=== PATIENT | male | born 1985 | race Caucasian/White ===

== ENCOUNTER 2017-07-30 11:31 | Inpatient (IN) | payer OTHER ==
[~2017-07-30] VITALS: Ht 167.6 cm; Wt 78.0 kg
[~2017-07-30 11:31] MED LIST: ALBU-74 IH; DORZ10SO3 RIGHT EYE; FLUT1DSK2 IH; MONT10TA35 PO; TIOT18CA2 PO; [UNRECOGNIZED DRUG - CODE] OP
[2017-07-30 11:39] VITALS: BP 156/93
[2017-07-30] MEDS ORDERED: methylPREDNISolone SS 125 MG/2 ML VIAL IVP ONE (11:50)
[2017-07-30] MEDS ORDERED: ALBUTEROL 0.083% 2.5 MG/3 ML NEBU INH ONE ×2 (11:50→13:30)
[2017-07-30] MEDS ORDERED: NACL 0.9% 1,000 ML IV ONE (11:50)
[2017-07-30] MEDS ORDERED: MAGNESIUM SULFATE 50% 1,000 MG in NACL 0.9% 50 ML IV ONE (11:50)
[2017-07-30] MEDS ORDERED: IPRATROPIUM 0.02% 0.5 MG/2.5 ML NEBU INH ONE (11:50)
--- NOTE | 2017-07-30 12:20 | NUR ---
BREATHING TREATMENT COMPLETED
[2017-07-30] MEDS ORDERED: MAGNESIUM SULFATE 50% 1000 MG/2 ML VIAL IV ONE (12:23)
--- NOTE | 2017-07-30 13:35 | NUR ---
PT SPO2 DROPPED TO 89% RA----MD NOTIFIED AND PLACED NC 2L BACK ON
[2017-07-30] MEDS ORDERED: OSELTAMIVIR PHOSPHATE 75 MG CAP PO ONE (13:55)
--- NOTE | 2017-07-30 14:00 | NUR ---
HOLDING CONVERSATION WITH PT---DENIES PAIN AT THIS TIME ADMITS BREATHING REMAINS LABORED BUT MANAGEABLE AT THIS TIME 2L NC IN PLACE----4-5 WORD SENTENCES
[2017-07-30] MEDS ORDERED: HYDROcodone/APAP 7.5/325 MG 1 TAB PO PRN (15:50)
[2017-07-30] MEDS ORDERED: DOCUSATE SODIUM 100 MG GELCAP PO PRN (15:50)
[2017-07-30] MEDS ORDERED: ACETAMINOPHEN 325 MG TAB PO PRN (15:50)
[2017-07-30] MEDS ORDERED: ONDANSETRON 4 MG/2 ML VIAL IM/IVP PRN (15:50)
[2017-07-30] MEDS ORDERED: ALBUTEROL SULFATE/IPRATROPIU 3 ML SOL IH PRN (15:55)
--- NOTE | 2017-07-30 16:16 | NUR ---
PATIENT TRANSFERED TO ROOM VIA GURNEY IN STABLE CONDITION WITH ALL BELONGINGS REPORT TO LIN IZAGUIRRE AT BEDSIDE.
[2017-07-30 16:55] LABS: BASOPHILS # (AUTO) 0.1 K/uL (0.00-0.22); EOSINOPHILS % (AUTO) 0.2 % (0.0-4.0); HEMATOCRIT 46.2 % (36-52); HEMOGLOBIN 15.2 g/dL (12.0-18.0); LYMPHOCYTES # (AUTO) 0.5 K/uL (2.0-11.5); LYMPHOCYTES % (AUTO) 5.3 % (20.5-51.1); MEAN CORPUSCULAR HEMOGLOBIN 27 pg (27-31); MEAN CORPUSCULAR HGB CONC 33 g/dL (33-37); MEAN CORPUSCULAR VOLUME 82 fL (80-94); MONOCYTES # (AUTO) 0.1 K/uL (0.8-1.0); MONOCYTES % (AUTO) 0.9 % (1.7-9.3); NEUTROPHILS # (AUTO) 8.3 K/uL (1.8-7.7); NEUTROPHILS % (AUTO) 92.6 % (42.2-75.2); PLATELET COUNT (AUTO) 218 K/uL (140-450); RED BLOOD CELL COUNT(AUTO) 5.65 MIL/uL (4.20-6.10); RED CELL DISTRIBUTION WIDTH 13.2 % (11.6-13.7)
--- NOTE | 2017-07-30 17:00 | NUR ---
Admitted from ED, with chief complaint of SOB X2 DAYS. PT AAOX4. NO SOB NOTED. NO C/O PAIN AT THIS TIME. IV TO LT FOREARM PATENT AND INTACT. CHEST, DIMINISHED AIR ENTRY TO THE BASES, EXPIRATORY WHEEZING HEARD BILATERALLY. PT IS A 31 y/o ,Male, Cooperative,oriented to call light, bed, phone,television, bathroom, smoking policy, visiting hours, procedures, ID bracelet on. Belongings list checked. INSTRUCTED TO CALL FOR ASSISTANCE, CALL LIGHT WITHIN REACH, PT VERBALIZED UNDERSTANDING.
[2017-07-30] MEDS: NACL 0.9% 1,000 ML IV SCH (17:16)
[2017-07-30] MEDS ORDERED: INFLUENZA VIRUS VACCINE QUAD 0.5 ML SYR IMVAC SCH (17:35)
[2017-07-30] MEDS ORDERED: PNEUMOCOCCAL VACCINE 23 MCG/0.5 ML VIAL IMVAC SCH (17:35)
[2017-07-30 17:38] LABS: ALBUMIN 3.8 g/dL (3.4-5.0); ANION GAP 15.9 (8-16); FREE T4 (FREE THYROXINE) 1.06 ng/dL (0.76-1.46); MAGNESIUM 2.3 mg/dL (1.8-2.4); PHOSPHORUS 1.8 mg/dL (2.5-4.9); POTASSIUM 3.9 mmol/L (3.5-5.1); THYROID STIMULATING HORMONE 0.34 uIU/mL (0.34-3.74); TOTAL BILIRUBIN 0.6 mg/dL (0.0-1.0)
[2017-07-30] MEDS ORDERED: AZITHROMYCIN 250 MG TAB PO SCH (18:00)
[2017-07-30] MEDS ORDERED: TIMOLOL PT (18:05)
--- NOTE | 2017-07-30 18:15 | NUR ---
[facility] NARES SWABS AND URINE SPECIMEN COLLECTED AND SENT TO LAB.
[2017-07-30] MEDS: ALBUTEROL SULFATE/IPRATROPIU 3 ML SOL IH SCH (18:35)
--- NOTE | 2017-07-30 19:05 | NUR ---
PT RESTING. NO SOB NOTED. NO COMPLAINTS MADE. WILL ENDORSE TO NEXT SHIFT NURSE FOR CONTINUITY OF CARE.
--- NOTE | 2017-07-30 19:27 | NUR ---
RECEIVED REPORT FROM DAY SHIFT RN, PATIENT RESTING IN BED, AWAKE, ALERT, ORIENTED X4, NO S/S OF DISTRESS NOTED, RESPIRATION EVEN AND UNLABORED, ON O2 3L. IV PATENT AND INTACT, INFUSING NS AT 60ML/HR. PLAN OF CARE DISCUSSED, PATIENT VERBALIZED UNDERSTANDING, CALL LIGHT WITHIN REACH, SAFETY MEASURE ENSURED, WILL CONTINUE TO MONITOR.
[2017-07-30 19:58] VITALS: BP 143/81
[2017-07-30 20:05] LABS: APPEARANCE,URINE CLEAR (CLEAR); BILIRUBIN,URINE NEGATIVE (NEGATIVE); BLOOD, URINE NEGATIVE (NEGATIVE); LEUKOCYTE ESTERASE ,URINE NEGATIVE (NEGATIVE); NITRITE, URINE NEGATIVE (NEGATIVE); UGLUCOSE TRACE (NEGATIVE)
[2017-07-30 20:12] LABS: COLOR,URINE STRAW (YELLOW)
--- NOTE | 2017-07-30 21:06 | NUR ---
MADE DR. MONAHAN AWARE THAT PATIENT HR 136. NO ORDER RECEIVED AT THIS TIME.
--- NOTE | 2017-07-30 22:30 | NUR ---
NO CHANGE IN CONDITION, PATIENT SITTING IN THE BED, NO S/S OF DISTRESS NOTED, RESPIRATION EVEN AND UNLABORED, CALL LIGHT WITHIN REACH, SAFETY MEASURE ENSURED, WILL CONTINUE TO MONITOR.
[2017-07-31] VITALS: BP 122/74
[2017-07-31] MEDS: ALBUTEROL SULFATE/IPRATROPIU 3 ML SOL IH SCH ×4 (00:03→19:47)
[2017-07-31 00:18] LABS: PROTHROMBIN TIME 9.8 secs (10.8-13.4)
--- NOTE | 2017-07-31 00:46 | NUR ---
PATIENT STILL AWAKE, VITAL SIGNS STABLE, NO S/S OF DISTRESS NOTED, RESPIRATION EVEN AND UNLABORED, ON O2 NC 3L. CALL LIGHT WITHIN REACH, SAFETY MEASURE ENSURED, WILL CONTINUE TO MONITOR.
--- NOTE | 2017-07-31 02:59 | NUR ---
IV OUT, NO ACTIVE BLEEDING NOTED, STARTED NEW IV 22G ON LT HAND, PATIENT TOLERATED WELL. WILL CONTINUE TO MONITOR.
--- NOTE | 2017-07-31 04:24 | NUR ---
PATIENT IS WATCHING TV, NO S/S OF DISTRESS NOTED, RESPIRATION EVEN AND UNLABORED, CALL LIGHT WITHIN REACH, SAFETY MEASURE ENSURED, WILL CONTINUE TO MONITOR.
--- NOTE | 2017-07-31 06:16 | NUR ---
NO CHANGE IN CONDITION, PATIENT IS WATCHING TV, NO S/S OF DISTRESS NOTED, RESPIRATION EVEN AND UNLABORED, CALL LIGHT WITHIN REACH, SAFETY MEASURE ENSURED, WILL CONTINUE TO MONITOR.
[2017-07-31 06:37] LABS: BASOPHILS # (AUTO) 0.1 K/uL (0.00-0.22); BASOPHILS % (AUTO) 0.9 % (0.0-2.0); EOSINOPHILS % (AUTO) 0.2 % (0.0-4.0); HEMATOCRIT 42.7 % (36-52); LYMPHOCYTES # (AUTO) 1.1 K/uL (2.0-11.5); LYMPHOCYTES % (AUTO) 11.5 % (20.5-51.1); MEAN CORPUSCULAR HEMOGLOBIN 27 pg (27-31); MEAN CORPUSCULAR HGB CONC 33 g/dL (33-37); MEAN CORPUSCULAR VOLUME 82 fL (80-94); MONOCYTES # (AUTO) 0.6 K/uL (0.8-1.0); MONOCYTES % (AUTO) 5.7 % (1.7-9.3); NEUTROPHILS # (AUTO) 7.9 K/uL (1.8-7.7); NEUTROPHILS % (AUTO) 81.7 % (42.2-75.2); PLATELET COUNT (AUTO) 209 K/uL (140-450); RED BLOOD CELL COUNT(AUTO) 5.24 MIL/uL (4.20-6.10); RED CELL DISTRIBUTION WIDTH 12.7 % (11.6-13.7)
[2017-07-31 06:56] LABS: ANION GAP 13.6 (8-16); CARBON DIOXIDE 28.6 mmol/L (21-32); CREATININE 0.8 mg/dL (0.7-1.3); POTASSIUM 4.2 mmol/L (3.5-5.1)
[2017-07-31 07:06] LABS: WHITE BLOOD COUNT (AUTO) 9.7 K/uL (4.8-10.8)
[2017-07-31 07:07] LABS: PHOSPHORUS 3.4 mg/dL (2.5-4.9)
--- NOTE | 2017-07-31 07:12 | NUR ---
ENDORSED PLAN OF CARE TO DAY SHIFT RN, PATIENT RESTING IN BED, IN STABLE CONDITION, NO S/S OF DISTRESS.
--- NOTE | 2017-07-31 07:30 | NUR ---
RECEIVED PT AAOX4. NO SOB NOTED. NO C/O PAIN AT THIS TIME. IV TO LT HAND PATENT AND INTACT. CHEST, DIMINISHED AIR ENTRY TO THE BASES, EXPIRATORY WHEEZING HEARD BILATERALLY. PT ON O2 VIA NC 2L AT WITH SATS OF 97%, PT ON 95% ON ROOM AIR WHILE ON BED. ABDOMEN SOFT, BOWEL SOUNDS PRESENT. NO EDEMA NOTED. INSTRUCTED PT TO CALL FOR ASSISTANCE, CALL LIGHT WITHIN REACH, PT VERBALIZED UNDERSTANDING.
[2017-07-31 08:00] VITALS: BP 125/75
[2017-07-31] MEDS: NACL 0.9% 1,000 ML IV SCH (08:57)
[2017-07-31] MEDS: AZITHROMYCIN 250 MG TAB PO SCH (08:58)
[2017-07-31] MEDS: MONTELUKAST SODIUM 10 MG TAB PO SCH (08:58)
[2017-07-31] MEDS: FAMOTIDINE 20 MG TAB PO SCH (08:58)
[2017-07-31] MEDS: methylPREDNISolone SS 40 MG/ML VIAL IVP SCH ×2 (08:59→20:59)
[2017-07-31] MEDS: LORATADINE 10 MG TAB PO SCH (08:59)
[2017-07-31] MEDS ORDERED: methylPREDNISolone SS 40 MG in WATER STERILE 1 ML IV SCH (09:00)
--- NOTE | 2017-07-31 09:03 | NUR ---
FAXED INITIAL REVIEW TO [facility] [phone] PHONE [phone] [id number] ERIK
--- NOTE | 2017-07-31 09:09 | NUR ---
PT CAME BACK FROM THE BATHROOM ON ROOMAIR, O2 SATS WERE BETWEEN 87%-88%, PT C/O SOB, HELPED SETTLED PT BACK IN BED ON SITTING POSITION, APPLIED O2 AT 2LPM, O2 SATS AT 93%. REEDUCATED PT WITH THE USE OF INCENTIVE SPIROMETER, PT REACHED UP TO 1000 MLS. INSTRUCTED PT TO DO IT 10X ON WAKING HOURS, PT VERBALIZED UNDERSTANDING. WILL CONTINUE TO MONITOR.
--- NOTE | 2017-07-31 09:48 | NUR ---
PATIENT HAS BEEN SCREENED AND CATEGORIZED LOW NUTRITION RISK. PATIENT WILL BE SEEN WITHIN 7 DAYS OF ADMISSION. 08/05/[address]
[2017-07-31 11:26] LABS: BARBITURATE, URINE NEG. ng/ml (NEG <=200); BENZODIAZEPINE, URINE NEG. ng/mL (NEG <=200); CANNABINOID, URINE NEG. ng/mL (NEG <=50); COCAINE, URINE NEG. ng/mL (NEG <=300); OPIATE, URINE NEG. ng/mL (NEG <=2000); PHENCYCLIDINE SCREEN,URINE NEG. ng/mL (NEG <=25)
--- NOTE | 2017-07-31 13:00 | NUR ---
SPOKE TO BOBO, PT'S O2 SATS DROPPED DOWN TO 87% ON ROOM AIR WHEN PT GOES TO THE BATHROOM, PT STILL COMPLAINING OF SOB ON EXERTION. O2 APPLIED BACK TO 2LPM VIA [employer] CANNULA. WILL CONTINUE TO MONITOR PT.
--- NOTE | 2017-07-31 14:45 | NUR ---
RESPIRATORY THERAPIST AT THE BEDSIDE TO DRAW ABG ON ROOM AIR.
[2017-07-31 16:00] VITALS: BP 116/71
--- NOTE | 2017-07-31 18:50 | NUR ---
PT RESTING. NO SOB NOTED. NO SIGNS OF PAIN AT THIS TIME. WILL ENDORSE TO NEXT SHIFT NURSE FOR CONTINUITY OF CARE.
--- NOTE | 2017-07-31 19:21 | NUR ---
RECEIVED REPORT FROM DAY SHIFT RN, PATIENT RESTING IN BED, AWAKE ALERT ORIENTED X4, NO S/S OF DISTRESS NOTED, RESPIRATION EVEN AND UNLABORED, ON O2 NC 2L. IV PATENT AND INTACT, INFUSING NS AT 60ML/HR. PLAN OF CARE DISCUSSED, PATIENT VERBALIZED UNDERSTANDING, CALL LIGHT WITHIN REACH, SAFETY MEASURE ENSURED, WILL CONTINUE TO MONITOR.
--- NOTE | 2017-07-31 21:08 | NUR ---
DUE MEDICATION GIVEN, PATIENT TOLERATED WELL. NO S/S OF DISTRESS NOTED, RESPIRATION EVEN AND UNLABORED, PATIENT IS ON ROOM AIR NOW, O2SAT 91%, STATED," I FEEL OKAY." CALL LIGHT WITHIN REACH, SAFETY MEASURE ENSURED, WILL CONTINUE TO MONITOR.
[2017-08-01] VITALS: BP 123/73
--- NOTE | 2017-08-01 00:10 | NUR ---
NO CHANGE IN CONDITION, PATIENT RESTING IN BED, RESPIRATION EVEN AND UNLABORED, NO S/S OF DISTRESS NOTED, CALL LIGHT WITHIN REACH, SAFETY MEASURE ENSURED, WILL CONTINUE TO MONITOR.
[2017-08-01] MEDS: ALBUTEROL SULFATE/IPRATROPIU 3 ML SOL IH SCH ×4 (01:00→19:32)
[2017-08-01] MEDS: NACL 0.9% 1,000 ML IV SCH ×2 (01:07→19:30)
--- NOTE | 2017-08-01 02:16 | NUR ---
PATIENT IS SLEEPING, NO S/S OF DISTRESS NOTED, RESPIRATION EVEN AND UNLABORED, CALL LIGHT WITHIN REACH, SAFETY MEASURE ENSURED, WILL CONTINUE TO MONITOR.
--- NOTE | 2017-08-01 04:57 | NUR ---
NO CHANGE IN CONDITION, PATIENT IS SLEEPING, NO S/S OF DISTRESS NOTED, RESPIRATION EVEN AND UNLABORED, CALL LIGHT WITHIN REACH, SAFETY MEASURE ENSURED, WILL CONTINUE TO MONITOR.
--- NOTE | 2017-08-01 05:15 | NUR ---
PATIENT AWAKE, RESPIRATION EVEN AND UNLABORED, O2SAT 92% ON ROOM AIR, BUT PATIENT WANTS TO BE PUT BACK ON O2 WHEN HE IS SLEEPING, PUT NC O2 2L BACK ON PATIENT, CALL LIGHT WITHIN REACH ,SAFETY MEASURE ENSURED, WILL CONTINUE TO MONITOR.
--- NOTE | 2017-08-01 06:58 | NUR ---
PATIENT IS SLEEPING, NO S/S OF DISTRESS NOTED, RESPIRATION EVEN AND UNLABORED, CALL LIGHT WITHIN REACH, SAFETY MEASURE ENSURED, WILL CONTINUE TO MONITOR.
[2017-08-01 07:14] LABS: HEMATOCRIT 46.7 % (36-52); HEMOGLOBIN 15.4 g/dL (12.0-18.0); MEAN CORPUSCULAR HEMOGLOBIN 27 pg (27-31); MEAN CORPUSCULAR HGB CONC 33 g/dL (33-37); MEAN CORPUSCULAR VOLUME 82 fL (80-94); PLATELET COUNT (AUTO) 249 K/uL (140-450); RED BLOOD CELL COUNT(AUTO) 5.67 MIL/uL (4.20-6.10); RED CELL DISTRIBUTION WIDTH 12.8 % (11.6-13.7); WHITE BLOOD COUNT (AUTO) 15.4 K/uL (4.8-10.8)
[2017-08-01 07:19] LABS: ANION GAP 12.9 (8-16); CARBON DIOXIDE 30.7 mmol/L (21-32); POTASSIUM 4.6 mmol/L (3.5-5.1)
[2017-08-01 07:21] LABS: MAGNESIUM 2.1 mg/dL (1.8-2.4); PHOSPHORUS 4.8 mg/dL (2.5-4.9)
--- NOTE | 2017-08-01 07:21 | NUR ---
ENDORSED PLAN OF CARE TO DAY SHIFT RN, PATIENT IS IN STABLE CONDITION, NO S/S OF DISTRESS NOTED.
--- NOTE | 2017-08-01 07:22 | NUR ---
RECEIVED PATIENT REPORT AT BEDSIDE FROM NIGHT NURSE. PATIENT IS SLEEPING AND EASILY AROUSABLE TO VOICE AND SHOWS NO S/S OF ACUTE DISTRESS ON O2 @ 2L VIA NC. NOTED IV ON THE LEFT HAND WITH IVF'S INFUSING WELL, IV IS PATENT AND INTACT. SKIN INTACT. DENIES PAIN. PATIENT WAS DISCUSSED POC FOR TODAY, HOSPITAL ENVIRONMENT, CALL LIGHT USE FOR ASSISTANCE. BED IN LOW POSITION WITH CALL LIGHT WITHIN REACH, PATIENT VERBALIZED UNDERSTANDING.
--- NOTE | 2017-08-01 07:30 | NUR ---
PER [facility] CHARGE NURSE PATIENT TAKEN OFF O2 VIA NC D/T WEENING OFF ORDERS PER DR SIDDIQI.
--- NOTE | 2017-08-01 07:47 | NUR ---
AWAKE AND ALERT SATURATION 90% ON ROOM AIR POST HHN THERAPY PLACED BACK ON SUPPLEMENTAL OXYGEN AT 2 LPM VIA NC TO KEEP SATURATION GREATER THAN 92% SIMEON/RN NOTIFIED C/O NASAL DRYNESS ADDED HUMIDIFIER
[2017-08-01 08:05] VITALS: BP 147/84
[2017-08-01 08:40] LABS: BASOPHILS % (MANUAL) 1 % (0-2); LYMPHOCYTES % (MANUAL) 6 % (20-46); MONOCYTES % (MANUAL) 5 % (5-12)
[2017-08-01] MEDS: LORATADINE 10 MG TAB PO SCH (09:41)
[2017-08-01] MEDS: MONTELUKAST SODIUM 10 MG TAB PO SCH (09:41)
[2017-08-01] MEDS: AZITHROMYCIN 250 MG TAB PO SCH (09:42)
[2017-08-01] MEDS: methylPREDNISolone SS 40 MG/ML VIAL IVP SCH ×2 (09:42→20:15)
[2017-08-01] MEDS: FAMOTIDINE 20 MG TAB PO SCH (09:42)
--- NOTE | 2017-08-01 09:45 | NUR ---
ADMINISTERED SCHEDULED MEDICATIONS, PATIENT SWALLOWED WITHOUT DIFFICULTY, PATIENT OFF O2 AND ON ROOM AIR AND O2 SAT RANGES FROM 89-92%, HR 115-127. PATIENT DENIES SOB, DYSPNEA AND PAIN.
--- NOTE | 2017-08-01 09:50 | NUR ---
ASSISTED PATIENT WITH AMB ON UNIT, FIRST LAP AROUND UNIT PATIENT'S O2 SATURATION RANGES FROM 88%-90% HR 115-132 AND DENIES SOB, DYSPNEA, AND PAIN. SECOND ATTEMPT TO WALK AROUND UNIT PATIENT O2 SAT RANGES FROM 81%-90%, STEADILY DECREASED WITH HR 142 AND DENIES SOB, DYSPNEA, AND PAIN. PATIENT WAS TAKEN BACK TO ROOM AND GIVEN O2 @ 2L VIA NC. PATIENT'S O2 SAT IS NOW 94% HR 125 AND DENIES SOB, DYSPNEA, AND PAIN. ALL NEEDS MET AT THIS TIME, TIMOTEO FINLEY WAS NOTIFIED AND WILL ASSESS PATIENT'S O2 WHILE AMB WELL.
--- NOTE | 2017-08-01 10:30 | NUR ---
TIMOTEO RT AMB PATIENT ON UNIT, PATIENT'S O2 SAT WENT DOWN TO 80% WITH HR 145, PATIENT BACK IN ROOM ON O2 @ 2L VIA NC.
--- NOTE | 2017-08-01 10:40 | NUR ---
DR PHELAN AND DR PRIETO AWARE OF PATIENT'S O2 SAT DECREASING WHILE AMB.
[2017-08-01 12:20] VITALS: BP 135/69
--- NOTE | 2017-08-01 12:30 | NUR ---
PATIENT SHOWS NO S/S OF ACUTE DISTRESS ON O2 @ 2L VIA NC. BED IS LOWERED WITH CALL LIGHT WITHIN REACH.
--- NOTE | 2017-08-01 13:35 | NUR ---
PATIENT CURRENTLY RECEIVING BREATHING TX. PATIENT O2 SAT IS 96% HR OF 125. RT AT BEDSIDE.
--- NOTE | 2017-08-01 14:25 | NUR ---
CM NOTE CONCURRENT REVIEW FAXED TO [facility] / FAX# [phone], ATTN: ERIK #[phone] [id number]
[2017-08-01 16:00] VITALS: BP 136/64
--- NOTE | 2017-08-01 16:15 | NUR ---
PATIENT SHOWS NO S/S OF ACUTE DISTRESS ON O2 @ 2L VIA NC. BED IS LOWERED WITH CALL LIGHT WITHIN REACH.
[2017-08-01] MEDS: LEVOFLOXACIN 750 MG/D5W PREMIX 150 ML IV SCH (18:07)
--- NOTE | 2017-08-01 19:00 | NUR ---
NEW IV INSERTED FOR PROCEDURE TOMORROW MORNING, 20G RIGHT AC SL, PATENT AND INTACT.
--- NOTE | 2017-08-01 19:20 | NUR ---
GAVE PATIENT REPORT AT BEDSIDE TO NIGHT NURSE. PATIENT ENDORSED IN STABLE CONDITION.
--- NOTE | 2017-08-01 19:21 | NUR ---
RECEIVED REPORT FROM DAY SHIFT NURSE. PT IS A/OX4, ON 2L O2 VIA NASAL CANNULA. PT SKIN IS INTACT. PT HAS 2 IV'S ONE IS A 22G TO THE LEFT HAND INFUSING LEVAQUIN AT THE MOMENT, AND THE OTHER A 20G TO RIGHT AC FOR CONTRAST TOMORROW. PT AMBULATES TO RESTROOM WITH STEADY GAIT. PT SLIGHTLY TACHYCARDIC, OTHERWISE VS WNL. PT IN STABLE CONDITION, NO SIGNS OF DISTRESS NOTED. BED IN LOWEST POSITION, CALL LIGHT WITHIN REACH. WILL CONTINUE TO MONITOR.
--- NOTE | 2017-08-01 19:21 | NUR ---
RECEIVED REPORT FROM DAY SHIFT ICU NURSE. PT IS NONVERBAL, LETHARGIC, EYES PERRL. EET TO VENT, PEEP 5, FIO2 40, VT 400. LEFT IJ TRIPLE LUMEN CENTRAL LINE, INTACT, WITH GOOD BLOOD RETURN TO 3 PORTS. PT RECEIVING NOVASOURCE RENAL AT 45ML/HR WITH 50ML WATER FLUSH EVERY 6HRS VIA OGT. PT HAS BLACK CATHETER IN PLACE. PT IS S/P DEBRIDEMENT OF LEFT HEEL DM ULCER. MORNING CARE DONE. PT BLOOD SUGAR 0F 402 ENDORSED TO ME, WILL COVER WITH 10UNITS SLIDING SCALE I WAIT FOR DR TO CALL BACK. NO SIGNS OF DISTRESS NOTED. BED IN LOWEST POSITION, CALL LIGHT WITHIN REACH. WILL CONTINUE TO MONITOR. Addendum: 08/01/17 at 2313 by Lilly Zaragoza RN WRONG INPUT. PLEASE DISREGARD.
--- NOTE | 2017-08-01 20:20 | NUR ---
ADMINISTERED SCHEDULED MEDICATION, PT TOLERATED WELL. PT IN STABLE CONDITION, NO SIGNS OF DISTRESS NOTED. BED IN LOWEST POSITION, CALL LIGHT WITHIN REACH. WILL CONTINUE TO MONITOR.
--- NOTE | 2017-08-01 22:00 | NUR ---
GAVE PT EXTRA PILLOW SO PT CAN KEEP ARM STRAIGHT FOR RAC IV.
[2017-08-02] VITALS: BP 121/60
--- NOTE | 2017-08-02 | NUR ---
VITAL SIGNS WITHIN NORMAL LIMITS. PT IN STABLE CONDITION, NO SIGNS OF DISTRESS NOTED. BED IN LOWEST POSITION, CALL LIGHT WITHIN REACH. WILL CONTINUE TO MONITOR.
[2017-08-02] MEDS: ALBUTEROL SULFATE/IPRATROPIU 3 ML SOL IH SCH ×4 (01:05→19:03)
--- NOTE | 2017-08-02 03:30 | NUR ---
PERISHABLE FREIGHT INSPECTOR CALLED TO CONFIRM CT SCAN FOR 3AM OR IF IT WAS GOING TO BE LATER. ASKED DR MONAHAN AND SAID IT WAS OK TO DO NOW. TOLD MYSQL DBA AND SHE SAID SHE WOULD CALL AFTER BEING DONE IN ER.
--- NOTE | 2017-08-02 05:05 | NUR ---
PT IN STABLE CONDITION, NO SIGNS OF DISTRESS NOTED. BED IN LOWEST POSITION, CALL LIGHT WITHIN REACH. WILL CONTINUE TO MONITOR.
--- NOTE | 2017-08-02 05:30 | NUR ---
PT LEFT UNIT VIA WHEELCHAIR FOR CT WITH CONTRAST. PT STABLE.
--- NOTE | 2017-08-02 05:57 | NUR ---
PT ARRIVED BACK TO UNIT. PT IN STABLE CONDITION, NO SIGNS OF DISTRESS NOTED. BED IN LOWEST POSITION, CALL LIGHT WITHIN REACH. WILL CONTINUE TO MONITOR.
[2017-08-02 06:34] LABS: BASOPHILS # (AUTO) 0.1 K/uL (0.00-0.22); BASOPHILS % (AUTO) 0.9 % (0.0-2.0); EOSINOPHILS % (AUTO) 0.1 % (0.0-4.0); HEMATOCRIT 46.6 % (36-52); HEMOGLOBIN 15.4 g/dL (12.0-18.0); LYMPHOCYTES # (AUTO) 0.9 K/uL (2.0-11.5); LYMPHOCYTES % (AUTO) 6.8 % (20.5-51.1); MEAN CORPUSCULAR HEMOGLOBIN 27 pg (27-31); MEAN CORPUSCULAR HGB CONC 33 g/dL (33-37); MEAN CORPUSCULAR VOLUME 82 fL (80-94); MONOCYTES # (AUTO) 0.5 K/uL (0.8-1.0); MONOCYTES % (AUTO) 3.6 % (1.7-9.3); NEUTROPHILS # (AUTO) 11.7 K/uL (1.8-7.7); NEUTROPHILS % (AUTO) 88.6 % (42.2-75.2); PLATELET COUNT (AUTO) 256 K/uL (140-450); RED BLOOD CELL COUNT(AUTO) 5.67 MIL/uL (4.20-6.10); WHITE BLOOD COUNT (AUTO) 13.2 K/uL (4.8-10.8)
--- NOTE | 2017-08-02 07:23 | NUR ---
ENDORSED PT TO DAY SHIFT RN IN STABLE CONDITION FOR CONTINUITY OF CARE.
--- NOTE | 2017-08-02 07:24 | NUR ---
RECEIVED PATIENT REPORT AT BEDSIDE FROM NIGHT NURSE. PATIENT IS AAOX4 AND SHOWS NO S/S OF ACUTE DISTRESS ON O2 @ 1.5L VIA NC. PATIENT DOES STATE HE IS TIRED. ANTERIOR AND POSTERIOR SOFT WHEEZING HEARD. NOTED IV ON THE LEFT HAND WITH IVF'S INFUSING WELL, AND RIGHT AC SL, IV'S IS PATENT AND INTACT. SKIN INTACT. DENIES PAIN. PATIENT WAS DISCUSSED POC FOR TODAY, HOSPITAL ENVIRONMENT, CALL LIGHT USE FOR ASSISTANCE. BED IN LOW POSITION WITH CALL LIGHT WITHIN REACH, PATIENT VERBALIZED UNDERSTANDING.
[2017-08-02 07:42] LABS: ANION GAP 10.7 (8-16); CARBON DIOXIDE 32.6 mmol/L (21-32); CREATININE 1.2 mg/dL (0.7-1.3); POTASSIUM 4.3 mmol/L (3.5-5.1)
[2017-08-02 08:15] VITALS: BP 120/77
[2017-08-02] MEDS: LORATADINE 10 MG TAB PO SCH (08:52)
[2017-08-02] MEDS: LACTOBACILLUS RHAMNOSUS GG 1 EACH CAP PO SCH (08:52)
[2017-08-02] MEDS: AZITHROMYCIN 250 MG TAB PO SCH (08:52)
[2017-08-02] MEDS: MONTELUKAST SODIUM 10 MG TAB PO SCH (08:52)
[2017-08-02] MEDS: FAMOTIDINE 20 MG TAB PO SCH (08:53)
[2017-08-02] MEDS: methylPREDNISolone SS 40 MG/ML VIAL IVP SCH ×2 (08:53→20:33)
--- NOTE | 2017-08-02 08:56 | NUR ---
ADMINISTERED SCHEDULED MEDICATIONS. PATIENT SWALLOWED WITHOUT DIFFICULTY, IV PATENT AND INTACT. ALL NEEDS MET AT THIS TIME.
[2017-08-02] MEDS: NACL 0.9% 1,000 ML IV SCH (10:41)
--- NOTE | 2017-08-02 11:29 | NUR ---
TATYANA NOTE PATIENT INFORMATION FAXED TO [facility] / FAX# [phone], ATTN: DAMIEN Addendum: 08/02/17 at 1135 by Junito Oviedo RN PER TATYANA VALENCIA FOR [facility], NO AUTH NEEDED BUT PROVIDED [facility] CONTACT # IN CASE AUTH IS REQUESTED.
--- NOTE | 2017-08-02 11:45 | NUR ---
DISCONTINUED IV ON THE RT AC WIT CANNULA INTACT, PATIENT STATED IT BOTHERED HIM.
--- NOTE | 2017-08-02 14:20 | NUR ---
PATIENT BEING SEEN BY DR WELCH. PORTABLE O2 TANK GIVEN TO PATIENT PER ORDERS AT 2L VIA NC. ALL NEEDS MET AT THIS TIME.
--- NOTE | 2017-08-02 14:59 | NUR ---
CM NOTE PER DAMIEN FROM [facility], EVERYTHING IS ALL SET FOR PATIENT. PATIENT CAN BE PROVIDED W/ SMALLER PORTABLE 02 TANK ("WINE BOTTLE SIZE"). MADE AWARE THAT LU WILL BE THE CM FOR TOMORROW.
[2017-08-02] MEDS ORDERED: TIOT18CA2 PO (16:01)
[2017-08-02] MEDS ORDERED: ALBU0.0912 IH (16:01)
[2017-08-02] MEDS ORDERED: FLUT1DSK2 IH (16:01)
[2017-08-02] MEDS ORDERED: LACT10CA PO (16:01)
[2017-08-02] MEDS ORDERED: FAMO20TA13 PO (16:01)
[2017-08-02] MEDS ORDERED: LEVO750T2 PO (16:01)
[2017-08-02] MEDS ORDERED: MONT10TA35 PO (16:01)
[2017-08-02] MEDS ORDERED: PRED10TA5 PO (16:01)
[2017-08-02] MEDS ORDERED: DORZ10SO3 RIGHT EYE (16:01)
[2017-08-02] MEDS ORDERED: LORA10TA19 PO (16:01)
[2017-08-02] MEDS ORDERED: AZIT250T11 PO (16:01)
[2017-08-02 16:29] VITALS: BP 126/73
[2017-08-02] MEDS: LEVOFLOXACIN 750 MG/D5W PREMIX 150 ML IV SCH (17:00)
--- NOTE | 2017-08-02 17:05 | NUR ---
ADMINISTERED SCHEDULED MEDICATIONS, IV ABX INFUSING WELL.
--- NOTE | 2017-08-02 19:34 | NUR ---
GAVE PATIENT REPORT AT BEDSIDE, PATIENT ENDORSED IN STABLE CONDITION.
--- NOTE | 2017-08-02 19:35 | NUR ---
RECEIVED BEDSIDE REPORT FROM DAY SHIFT NURSE SIMEON, PT STABLE, NO DISTRESS NOTED, IV TO L H 22G RUNNING NS @50 ML/HR, PT AMBULATED TO BATHROOM AND BACK TO BED, NO SOB, PT ON 2LPM O2 VIA NC, DENIES ANY PAIN, INITIAL ASSESSMENT DONE, ALL SAFETY PRECAUTION MET, WILL CONTINUE TO MONITOR.
--- NOTE | 2017-08-02 19:45 | NUR ---
ENDORSED PLAN OF CARE TO RN JANA, PT STABLE, NO DISTRESS NOTED, CALL LIGHT WITHIN REACH.
--- NOTE | 2017-08-02 19:46 | NUR ---
PATIENT REPORT RECEIVED FROM LIN BARBER FOR CONTINUITY OF CARE. PATIENT IS AWAKE, ALERT, AND ORIENTED. NO SIGNS AND SYMPTOMS OF DISTRESS NOTED. NO COMPLAINTS OF PAIN AT THIS TIME. PATIENT IS ON O2 2L NC. IV SITE NOTED ON LEFT HAND, SALINE LOCKED. BED IN LOWEST POSITION, SIDE RAILS UP AND CALL LIGHT WITHIN REACH. WILL CONTINUE TO MONITOR.
--- NOTE | 2017-08-02 21:00 | NUR ---
MEDICATION EDUCATION GIVEN ON PATIENTS SCHEDULED MEDS. PATIENT VERBALIZED UNDERSTANDING. MEDS ADMINISTERED ORDERED. PATIENT TOLERATED WELL. WILL CONTINUE TO MONITOR.
[2017-08-03] VITALS: BP 114/53
[2017-08-03] MEDS: ALBUTEROL SULFATE/IPRATROPIU 3 ML SOL IH SCH ×2 (00:16→07:02)
--- NOTE | 2017-08-03 00:30 | NUR ---
CHECKED ON PATIENT. PATIENT IS ASLEEP. NO SIGNS AND SYMPTOMS OF DISTRESS NOTED. BREATHING EVEN AND UNLABORED. WILL CONTINUE TO MONITOR.
--- NOTE | 2017-08-03 03:17 | NUR ---
CHECKED ON PATIENT. PATIENT IS ASLEEP. NO SIGNS AND SYMPTOMS OF DISTRESS NOTED. BREATHING EVEN AND UNLABORED. WILL CONTINUE TO MONITOR.
[2017-08-03 06:36] LABS: HEMATOCRIT 49.7 % (36-52); HEMOGLOBIN 16.1 g/dL (12.0-18.0); MEAN CORPUSCULAR HEMOGLOBIN 27 pg (27-31); MEAN CORPUSCULAR HGB CONC 32 g/dL (33-37); MEAN CORPUSCULAR VOLUME 82 fL (80-94); PLATELET COUNT (AUTO) 282 K/uL (140-450); RED BLOOD CELL COUNT(AUTO) 6.03 MIL/uL (4.20-6.10); RED CELL DISTRIBUTION WIDTH 13.2 % (11.6-13.7); WHITE BLOOD COUNT (AUTO) 16.9 K/uL (4.8-10.8)
[2017-08-03 06:57] LABS: ANION GAP 9.7 (8-16); CARBON DIOXIDE 34.7 mmol/L (21-32); CREATININE 1.1 mg/dL (0.7-1.3); POTASSIUM 4.4 mmol/L (3.5-5.1)
[2017-08-03 07:06] LABS: EOSINOPHILS % (MANUAL) 3 % (0-4); LYMPHOCYTES % (MANUAL) 12 % (20-46); MAGNESIUM 2.3 mg/dL (1.8-2.4); MONOCYTES % (MANUAL) 5 % (5-12)
--- NOTE | 2017-08-03 07:28 | NUR ---
PATIENT REPORT GIVEN TO MORNING NURSE AT BEDSIDE. PATIENT IS IN STABLE CONDITION
--- NOTE | 2017-08-03 07:30 | NUR ---
RECEIVED PATIENT REPORT AT BEDSIDE FROM NIGHT NURSE. PATIENT IS AAOX4 AND SHOWS NO S/S OF ACUTE DISTRESS ON O2 @ 2L VIA NC. PATIENT STATES, "I AM DOING BETTER TODAY." ANTERIOR AND POSTERIOR SOFT WHEEZING HEARD. NOTED IV ON THE LEFT HAND WITH IVF'S INFUSING, IV IS PATENT AND INTACT. SKIN INTACT. DENIES PAIN. PATIENT WAS DISCUSSED POC FOR TODAY, HOSPITAL ENVIRONMENT, CALL LIGHT USE FOR ASSISTANCE. BED IN LOW POSITION WITH CALL LIGHT WITHIN REACH, PATIENT VERBALIZED UNDERSTANDING.
[2017-08-03 08:00] VITALS: BP 123/65
[2017-08-03] MEDS ORDERED: ALBU-74 IH (08:55)
--- NOTE | 2017-08-03 09:16 | NUR ---
CALLED [facility], [phone] DAMIEN X [phone]. SPOKE WITH DAMIEN. HE SAID THE PORABLE O2 AND THE CONCENTRATOR IS TO BE DELIVERED HERE TO THE HOSPITAL TODAY.
[2017-08-03] MEDS: MONTELUKAST SODIUM 10 MG TAB PO SCH (09:20)
[2017-08-03] MEDS: AZITHROMYCIN 250 MG TAB PO SCH (09:21)
[2017-08-03] MEDS: LORATADINE 10 MG TAB PO SCH (09:22)
[2017-08-03] MEDS: FAMOTIDINE 20 MG TAB PO SCH (09:22)
[2017-08-03] MEDS: LACTOBACILLUS RHAMNOSUS GG 1 EACH CAP PO SCH (09:22)
[2017-08-03] MEDS: methylPREDNISolone SS 40 MG/ML VIAL IVP SCH (09:23)
--- NOTE | 2017-08-03 09:32 | NUR ---
ADMINISTERED SCHEDULED MEDICATIONS. PATIENT SWALLOWED WITHOUT DIFFICULTY, IV PATENT AND INTACT. FLU VACCINE AND PNA VACCINE ADMINISTERED. PATIENT TOLERATED ACTIVITY WELL. PATIENT C/O OF COUGH, WILL NOTIFY DR FOR COUGH MEDICATIONS.
--- NOTE | 2017-08-03 09:38 | NUR ---
NOTIFIED DR PRIETO OF PATIENT'S REQUEST FOR COUGH MEDICATION. TO PLACE ORDERS.
[2017-08-03] MEDS ORDERED: guaiFENesin DM 200/20 MG-10 ML 10 ML UDC PO PRN (09:40)
--- NOTE | 2017-08-03 10:39 | NUR ---
[facility] ON UNIT PROVIDING EDUCATION ON HOME OXYGEN, PORTABLE OXYGEN AND CONCENTRATOR WITH PATIENT. PATIENT VERBALIZES UNDERSTANDING OF CONTINUITY OF CARE. LU CHILDRESS NOTIFIED, DR HOSKINS NOTIFIED.
--- NOTE | 2017-08-03 11:00 | NUR ---
GAVE PATIENT'S HOME MEDICATIONS.
--- NOTE | 2017-08-03 11:20 | NUR ---
ADMINISTERED ROBITUSSIN FOR C/O COUGH. PATIENT SWALLOWED MEDICATION WITHOUT DIFFICULTY. ALL NEEDS MET AT THIS TIME.
[2017-08-03] MEDS ORDERED: PROMETH/CODEINE 6.25-10MG/5ML 5 ML UDC PO PRN (12:25)
--- NOTE | 2017-08-03 12:45 | NUR ---
PATIENT ALSO HAS HOME MEDICATIONS WITH HIM AT DISCHARGE.
--- NOTE | 2017-08-03 12:45 | NUR ---
PATIENT HAS BEEN DISCHARGED, ALL DISCHARGE INSTRUCTIONS AND PRESCRIPTIONS GIVEN. ALL PAPERWORK SIGNED, ALL QUESTIONS ANSWERED, PATIENT VERBALIZED UNDERSTANDING OF CONTINUITY OF CARE. IV WAS DC'ED WITH CANNULA INTACT. PATIENT LEFT UNIT IN WHEELCHAIR WITH RN AND RN STUDENT PRESENT AT SIDE. PATIENT LEFT UNIT WITH OXYGEN CONCENTRATOR AND PORTABLE OXYGEN TANK. IMAGE CD ROM OF CT SCAN WITH PATIENT. PATIENT LEFT IN STABLE CONDITION.
== END 2017-08-03 12:45 | disposition home or self-care (01) | DRG 140 ==
LOC: MED 11:31 → MTU 15:53
PROVIDERS: ADMIT Family Medicine; ATTEND Family Medicine
PROC: 3E0234Z Introduction of Serum, Toxoid and Vaccine into Muscle, Percutaneous Approach (ICD-10-PCS; principal; 2017-08-03)
PROC: 3E0234Z Introduction of Serum, Toxoid and Vaccine into Muscle, Percutaneous Approach (ICD-10-PCS; 2017-08-03)
DX: J44.1 Chronic obstructive pulmonary disease with (acute) exacerbation (principal); J96.21 Acute and chronic respiratory failure with hypoxia; N17.0 Acute kidney failure with tubular necrosis; J45.901 Unspecified asthma with (acute) exacerbation; E83.39 Other disorders of phosphorus metabolism; Z99.81 Dependence on supplemental oxygen; J01.90 Acute sinusitis, unspecified; E66.9 Obesity, unspecified; H53.50 Unspecified color vision deficiencies; B34.9 Viral infection, unspecified; Z68.27 Body mass index [BMI] 27.0-27.9, adult; Z91.14 Patient's other noncompliance with medication regimen; Z23 Encounter for immunization; B96.89 Other specified bacterial agents as the cause of diseases classified elsewhere
CPT/HCPCS: 36415; 36600; 71045; 71046; 71260; 80048; 80053; 80305; 81003; 82150; 82803; 83690; 83735; 84100; 84436; 84439; 84443; 85025; 85610; 85730; 87081; 87804; 90658; 90732; 94640; 96361; 96365; 96375; 99285; J1956; J2920; J2930; J3475; J7030; J7613; J7620; J7644; Q0092; Q9967

== ENCOUNTER 2017-08-15 14:17 | Emergency (ER) | payer MEDICAID, OTHER ==
[~2017-08-15] VITALS: Ht 167.6 cm; Wt 86.4 kg
[~2017-08-15 14:17] MED LIST changes: +ALBU0.0912 IH; +FAMO20TA13 PO; +LACT10CA PO; +LEVO750T2 PO; +LORA10TA19 PO; +PRED10TA5 PO; +TIMOLOL PT
[2017-08-15 14:40] VITALS: BP 142/76
--- NOTE | 2017-08-15 14:44 | NUR ---
PT SENT TO LOBBY TO WAIT FOR A BED.
--- NOTE | 2017-08-15 15:32 | NUR ---
PT AMBULATED TO BED 2
--- NOTE | 2017-08-15 15:35 | NUR ---
PATIENT PRESENTS TO ED WITH LUQ PAIN X 2 DAYS HX: ASTHMA; DENIES N/V/D; SKIN IS PINK/WARM/DRY; AAOX4 WITH EVEN AND STEADY GAIT; LUNGS CLEAR BL; HR EVEN AND REGULAR; PT DENIES ANY FEVER, CP, SOB, OR COUGH AT THIS TIME; PATIENT STATES PAIN OF 10/10 AT THIS TIME; VSS; PATIENT POSITIONED FOR COMFORT; HOB ELEVATED; BEDRAILS UP X2; BED DOWN. ER MD MADE AWARE OF PT STATUS.
[2017-08-15] MEDS ORDERED: HYDROcodone/APAP 10/325 MG 1 TAB TAB PO PRN (15:40)
--- NOTE | 2017-08-15 15:45 | NUR ---
PATIENT PRESENTS TO ED WITH C/O LUQ PAIN X 2 DAYS HX: ASTHMA; DENIES N/V/D; SKIN IS PINK/WARM/DRY; AAOX4 WITH EVEN AND STEADY GAIT; LUNGS CLEAR BL; HR EVEN AND REGULAR; PT DENIES ANY FEVER, CP, SOB, OR COUGH AT THIS TIME; PATIENT STATES PAIN OF 10/10 AT THIS TIME; VSS; PATIENT POSITIONED FOR COMFORT; HOB ELEVATED; BEDRAILS UP X2; BED DOWN. ER MD MADE AWARE OF PT STATUS.
--- NOTE | 2017-08-15 15:55 | NUR ---
PT TAKEN OFF THE UNIT FOR XRAY VIA WHEEL CHAIR
--- NOTE | 2017-08-15 16:09 | NUR ---
PT RBOUGHT BACK FROM XRAY
[2017-08-15 17:11] VITALS: BP 136/81
== END 2017-08-15 17:11 | disposition home or self-care (01) ==
LOC: MED 14:17
DX: R07.81 Pleurodynia (principal); J45.909 Unspecified asthma, uncomplicated; K21.9 Gastro-esophageal reflux disease without esophagitis; Z79.899 Other long term (current) drug therapy
CPT/HCPCS: 71101; 99284

== ENCOUNTER 2018-10-14 12:39 | Emergency (ER) | payer MEDICAID, OTHER ==
[~2018-10-14] VITALS: Ht 167.6 cm; Wt 79.4 kg
[2018-10-14 12:44] VITALS: BP 127/79
--- NOTE | 2018-10-14 12:49 | NUR ---
PT C/O SOB X 2 WEEKS, BUT IT STARTED TO GET WORSE TODAY. BREATHING APPEARS LABORED AND SHALLOW, O2 SAT 93% RA, PLACED PT ON O2 NC 3LPM. LUNG SOUNDS DIMINISHED THROUGHOUT. PT TACHYCARDIC AT 113 BPM. PT IS A&0X 4. DENIES N/V/D; SKIN IS PINK/WARM/DRY; AAOX4 WITH EVEN AND STEADY GAIT; PATIENT STATES PAIN OF 0/10 AT THIS TIME; PATIENT POSITIONED FOR COMFORT; HOB ELEVATED; BEDRAILS UP X1; BED DOWN. ER MD MADE AWARE OF PT STATUS.
[2018-10-14] MEDS ORDERED: ALBUTEROL SULFATE/IPRATROPIU 3 ML SOL IH ONE (13:00)
--- NOTE | 2018-10-14 13:10 | NUR ---
ERMD AT BEDSIDE
[2018-10-14] MEDS ORDERED: predniSONE 20 MG TAB PO ONE (13:25)
[2018-10-14 14:28] VITALS: BP 125/72
--- NOTE | 2018-10-14 14:28 | NUR ---
Patient discharged with v/s stable. Written and verbal after care instructions given and explained. Patient alert, oriented and verbalized understanding of instructions. Ambulatory with steady gait. All questions addressed prior to discharge. ID band removed. Patient advised to follow up with PMD. Rx of ALBUTEROL, PREDNISONE, SPIRIVA, SINGULAIR, ADVAIR given. Patient educated on indication of medication including possible reaction and side effects. Opportunity to ask questions provided and answered.
== END 2018-10-14 14:28 | disposition home or self-care (01) ==
LOC: MED 12:39
DX: J45.901 Unspecified asthma with (acute) exacerbation (principal); K21.9 Gastro-esophageal reflux disease without esophagitis; Z79.899 Other long term (current) drug therapy
CPT/HCPCS: 71045; 94640; 99283; J7512; J7620; Q0092

== ENCOUNTER 2019-01-29 11:00 | Inpatient (IN) | payer MEDICAID, OTHER ==
[~2019-01-29] VITALS: Ht 167.6 cm; Wt 78.0 kg
[2019-01-29 11:11] VITALS: BP 127/85
--- NOTE | 2019-01-29 11:15 | NUR ---
33 Y MALE BIB SELF C/O SOB UPON AWAKENING THIS AM. PATIENT AT 88% RA- STARTED ON 4 L NC AND NOW 95%. NON-PRODUCTIVE COUGH. RR LABORED, WHEEZING BILATERALLY. PATIENT STATES HE HAS A HOME NEBULIZER TREATMENT BUT "DIDNT HAVE THE ENERGY" TO USE IT. PMH- COPD, ASTHMA
--- NOTE | 2019-01-29 11:41 | NUR ---
DR JAMES AT BEDSIDE
[2019-01-29] MEDS ORDERED: IPRATROPIUM 0.02% 0.5 MG/2.5 ML NEBU INH ONE ×2 (11:50→13:00)
[2019-01-29] MEDS ORDERED: ALBUTEROL 0.083% 2.5 MG/3 ML NEBU INH ONE ×3 (11:50→13:50)
[2019-01-29] MEDS ORDERED: predniSONE 20 MG TAB PO ONE (11:50)
--- NOTE | 2019-01-29 11:59 | NUR ---
RT AT BEDSIDE
--- NOTE | 2019-01-29 11:59 | NUR ---
PREDNISONE ADMINISTERED PO. PT TOLERATED WELL.
--- NOTE | 2019-01-29 12:24 | NUR ---
HX: COPD POST HHN THERAPY TITRATED FIO2 TO 3 LPM VIA NC
--- NOTE | 2019-01-29 12:45 | NUR ---
PER DR JAMES, TAKE PATIENT OFF OXYGEN AND MONITOR SATS
--- NOTE | 2019-01-29 12:55 | NUR ---
PT CONTINUES TO DROP TO 88% RA.
--- NOTE | 2019-01-29 13:00 | NUR ---
PT PUT ON 3 L NC
--- NOTE | 2019-01-29 13:00 | NUR ---
XRAY AT BEDSIDE
--- NOTE | 2019-01-29 13:09 | NUR ---
RT AT BEDSIDE
--- NOTE | 2019-01-29 13:12 | NUR ---
REPORT GIVEN TO MICHAEL CEBALLOS
--- NOTE | 2019-01-29 13:15 | NUR ---
RECEIVED REPORT FROM LIN DOWD. PT IN BED AAOX4, RR EVEN UNLABORED, ON O2 VIA N/C AT 3LPM WITH O2SAT 95%, NO C/O PAIN AT THIS TIME. WILL CONTINUE TO MONITOR CLOSELY.
[2019-01-29] MEDS ORDERED: NACL 0.9% 1,000 ML IV ONE (13:50)
[2019-01-29] MEDS ORDERED: MAG SULF 2000 MG/WATER PREMIX 50 ML IV ONE (13:50)
[2019-01-29] MEDS ORDERED: methylPREDNISolone SS 125 MG/2 ML VIAL IVP ONE (13:50)
[2019-01-29] MEDS: NACL 0.9% 1,000 ML IV SCH (13:59)
[2019-01-29] MEDS ORDERED: ACETAMINOPHEN 325 MG TAB PO PRN (14:00)
--- NOTE | 2019-01-29 14:00 | NUR ---
ABG COMPLETED POST PUNCTURE PLCAED BACK ON SUPPLEMENTAL OXYGEN AT 3 LPM VIA NC
--- NOTE | 2019-01-29 14:15 | NUR ---
RT AT BEDSIDE
[2019-01-29 14:45] LABS: BASOPHILS % (AUTO) 0.1 % (0.0-2.0); EOSINOPHILS # (AUTO) 0.1 K/uL (0-0.4); HEMATOCRIT 51.7 % (36-52); HEMOGLOBIN 17.1 g/dL (12.0-18.0); LYMPHOCYTES # (AUTO) 0.9 K/uL (2.0-11.5); LYMPHOCYTES % (AUTO) 13.1 % (20.5-51.1); MEAN CORPUSCULAR HEMOGLOBIN 27 pg (27-31); MEAN CORPUSCULAR HGB CONC 33 g/dL (33-37); MEAN CORPUSCULAR VOLUME 82.4 fL (80-94); MONOCYTES # (AUTO) 0.2 K/uL (0.8-1.0); MONOCYTES % (AUTO) 3.6 % (1.7-9.3); NEUTROPHILS # (AUTO) 5.5 K/uL (1.8-7.7); NEUTROPHILS % (AUTO) 82.2 % (42.2-75.2); PLATELET COUNT (AUTO) 184 K/uL (140-450); RED BLOOD CELL COUNT(AUTO) 6.28 MIL/uL (4.20-6.10); RED CELL DISTRIBUTION WIDTH 14.7 % (11.6-13.7); WHITE BLOOD COUNT (AUTO) 6.6 K/uL (4.8-10.8)
[2019-01-29 14:53] LABS: ANION GAP 11.2 (8-16); CARBON DIOXIDE 30.9 mmol/L (21-32); POTASSIUM 4.1 mmol/L (3.5-5.1)
[2019-01-29 14:55] VITALS: BP 100/61
--- NOTE | 2019-01-29 14:55 | NUR ---
RECEIVED BEDSIDE REPORT FROM ER NURSE. PATIENT IS AWAKE, ALERT AND ORIENTEDX4. NO SIGNS OF DISTRESS ON 3L NC. SKIN IS INTACT. IV ON R FA 20G. CLEAN, DRY AND INTACT. PATIENT IS AMBULATORY. CONTINENT. NO COMPLAINTS AT THIS TIME. EATING. VITALS ARE STABLE. MRSA SWAB IS DONE. TELE MONITOR IN PLACE. ALL ADMISSION QUESTIONS ANSWERED. BED IN LOW POSITION. CALL LIGHT WITHIN REACH. WILL CONTINUE TO MONITOR THE PATIENT.
--- NOTE | 2019-01-29 14:55 | NUR ---
Patient will be admitted to care of DR. GARCIA. Admited to [facility]. Will go to room 111A. Belongings list completed. BEDSIDE Report GIVEN TO LIN GREEN.
[2019-01-29 15:07] LABS: ALBUMIN 4.2 g/dL (3.4-5.0); TOTAL BILIRUBIN 0.7 mg/dL (0.0-1.0)
[2019-01-29 15:11] LABS: MAGNESIUM 1.8 mg/dL (1.8-2.4); THYROID STIMULATING HORMONE 0.5 uIU/mL (0.34-3.74)
[2019-01-29] MEDS ORDERED: TETRAHYDROZOLINE 0.05% OP 15 ML BTL OP PRN (15:30)
--- NOTE | 2019-01-29 15:30 | NUR ---
ADMITTED PATIENT FROM ER. COMPLETED ADMISSION PAPERWORK. PATIENT IS STABLE, VITAL SIGNS WNL. NO S/S OF RESPIRATORY DISTRESS. PATIENT IS ON NASAL CANNULA 3L. CONNECTED PATIENT TO IV FLUIDS @60ML/HR. NO FURTHER COMPLAINTS AT THIS TIME. WILL CONTINUE TO MONITOR.
--- NOTE | 2019-01-29 15:45 | NUR ---
ADMIT TELE STRIP IS SINUS TACHYCARDIA. PATIENT IS ASYMPTOMATIC. WILL CONTINUE TO MONITOR
[2019-01-29] MEDS ORDERED: SODIUM PHOSPHATE 15 MMOLE in NACL 0.9% 250 ML IV SCH (16:30)
--- NOTE | 2019-01-29 17:00 | NUR ---
PATIENT IN NO DISTRESS. WILL CONTINUE TO MONITOR
[2019-01-29] MEDS ORDERED: ACET325C7 PO (17:13)
[2019-01-29] MEDS ORDERED: [UNRECOGNIZED DRUG - CODE] OP (17:18)
--- NOTE | 2019-01-29 19:00 | NUR ---
RECEIVED PT FROM AM SHIFT. AWAKE, ALERT ORIENTED X 4; PT SITTING COMFORTABLY IN CHAIR. AMBULATORY, STEADY GAIT, IN ACUTE ASTMA EXACERBATION, W/ SOB, FOLLOWED UP PT FOR HIS BREATHING TX. W/ IV ON THE R FA G 20 NA PHOSPHATE RUNNING AT 45 ML/HR, PATENT. POC PEVIEWED. WILL CONTINUE TO MONITOR
[2019-01-29] MEDS: ALBUTEROL SULFATE/IPRATROPIU 3 ML SOL IH SCH (19:58)
--- NOTE | 2019-01-29 20:13 | NUR ---
RECEIVED PATIENT ON 3L NASAL CANNULA, PULSE OX 95%. SCHEDULED BREATHING TREATMENT ADMINISTERED. TOLERATED TX WELL WITHOUT ADVERSE SIDE EFFECTS. PLACED PATIENT BACK ON 3L NC. VISITORS AT BEDSIDE. WILL CONTINUE TO MONITOR.
--- NOTE | 2019-01-29 21:01 | NUR ---
INFORMED DR. SMITH THAT PT HAS A HR= 139 TO 140. AND PT JUST GOT THE BREATHING TX. NO NEW ORDERS
[2019-01-29 22:19] VITALS: BP 129/79
[2019-01-30] VITALS: BP 109/63
--- NOTE | 2019-01-30 | NUR ---
CHECKED PT PT WENT TO BATHROOM, AMBULATORY STEADY GAIT
--- NOTE | 2019-01-30 01:45 | NUR ---
BREATHING TX GIVEN BY RT REQUESTED BY PT.
[2019-01-30] MEDS: ALBUTEROL SULFATE/IPRATROPIU 3 ML SOL IH PRN ×2 (02:12→09:19)
--- NOTE | 2019-01-30 02:25 | NUR ---
PATIENT ON 2L NC, PULSE OX SAT 94%. PRN BREATHING TREATMENT ADMINISTERED DUE TO SOB. TOLERATED TX WELL, NO ADVERSE SIDE EFFECTS. INCENTIVE SPIROMETER PERFORMED WITH POOR EFFORT, NEEDS ENCOURAGEMENT. NO ACUTE RESPIRATORY DISTRESS NOTED AT THIS TIME. WILL CONTINUE TO MONITOR.
--- NOTE | 2019-01-30 03:48 | NUR ---
PT TRYING TO GET SOME SLEEP, IN STABLE CONDITION
[2019-01-30 04:00] VITALS: BP 109/69
--- NOTE | 2019-01-30 06:21 | NUR ---
PT AWAKE ALERT ORIENTED X 4, AMBULATORY W/ GLAUCOMA ON RIGHT EYE, PT HAS STEADY GAIT. PT IN STABLE CONDITION AT THIS TIME. NO SOB AT THIS TIME. NO RESPIRATORY DISTRESS. FOR MONITORING OF SOB.
[2019-01-30] MEDS: NACL 0.9% 1,000 ML IV SCH ×3 (06:39→13:27)
[2019-01-30 07:06] LABS: BASOPHILS % (AUTO) 0.4 % (0.0-2.0); EOSINOPHILS % (AUTO) 0.2 % (0.0-4.0); HEMATOCRIT 48.8 % (36-52); LYMPHOCYTES # (AUTO) 0.6 K/uL (2.0-11.5); LYMPHOCYTES % (AUTO) 7.4 % (20.5-51.1); MEAN CORPUSCULAR HEMOGLOBIN 27 pg (27-31); MEAN CORPUSCULAR HGB CONC 33 g/dL (33-37); MEAN CORPUSCULAR VOLUME 82.9 fL (80-94); MONOCYTES # (AUTO) 0.6 K/uL (0.8-1.0); MONOCYTES % (AUTO) 7.9 % (1.7-9.3); NEUTROPHILS # (AUTO) 6.4 K/uL (1.8-7.7); NEUTROPHILS % (AUTO) 84.1 % (42.2-75.2); PLATELET COUNT (AUTO) 217 K/uL (140-450); RED BLOOD CELL COUNT(AUTO) 5.88 MIL/uL (4.20-6.10); RED CELL DISTRIBUTION WIDTH 14.8 % (11.6-13.7)
[2019-01-30 07:11] LABS: ANION GAP 10.9 (8-16); POTASSIUM 4.9 mmol/L (3.5-5.1)
[2019-01-30 07:17] LABS: MAGNESIUM 2.2 mg/dL (1.8-2.4)
[2019-01-30] MEDS: ALBUTEROL SULFATE/IPRATROPIU 3 ML SOL IH SCH ×3 (07:23→18:59)
--- NOTE | 2019-01-30 07:25 | NUR ---
RECEIVED BEDSIDE REPORT FROM LIN FORBES. PT STABLE, SLEEPING, BUT EASILY AROUSABLE. NO SIGNS OF DISTRESS NOTED. DENIES PAIN OR SOB. NO REDNESS, SWELLING, OR INFLAMMATION NOTED ON IV SITE. CALL JENSEN WITHIN REACH. BED IN LOWEST POSITION, BED ALARM ON. SAFETY MEASURES IN PLACE. PLAN OF CARE REVIEWED.
[2019-01-30 07:56] LABS: WHITE BLOOD COUNT (AUTO) 7.6 K/uL (4.8-10.8)
[2019-01-30 08:00] VITALS: BP 104/75
[2019-01-30 08:17] LABS: T4 (THYROXINE) 9.4 ug/dL (4.5-12.0)
--- NOTE | 2019-01-30 08:47 | NUR ---
PATIENT HAS BEEN SCREENED AND CATEGORIZED MODERATE NUTRITION RISK. PATIENT WILL BE SEEN WITHIN 3-5 DAYS OF ADMISSION. 02/01/[address]
[2019-01-30] MEDS ORDERED: methylPREDNISolone SS 125 MG/2 ML VIAL IVP SCH (09:00)
[2019-01-30] MEDS: LORATADINE 10 MG TAB PO SCH (09:08)
[2019-01-30] MEDS: MONTELUKAST SODIUM 10 MG TAB PO SCH (09:08)
[2019-01-30] MEDS: FAMOTIDINE 20 MG TAB PO SCH (09:09)
[2019-01-30] MEDS: TIMOLOL OP 0.5% 5 ML BTL RIGHT EYE SCH (09:10)
--- NOTE | 2019-01-30 09:16 | NUR ---
ADMINISTERED SCHEDULED MEDICATIONS, PT TOLERATED WELL. PT COMPLAINED OF SOB, CALLED RT MAHMOOD FOR PRN BREATHING TREATMENT. NO OTHER NEEDS AT THIS TIME. WILL CONTINUE TO MONITOR.
--- NOTE | 2019-01-30 09:32 | NUR ---
TOLERATED INCENTIVE SPIROMETRY THERAPY WELL WITHOUT INCIDENT ENCOURAGED PATIENT WITH ACKNOWLEDGEMENT TO USE INCENTIVE SPIROMETRY EVERY 1-2 HOURS WHILE AWAKE
--- NOTE | 2019-01-30 11:20 | NUR ---
PT STABLE, RESTING IN BED. NO SIGNS OF DISTRESS NOTED. NO NEEDS AT THIS TIME.
--- NOTE | 2019-01-30 13:15 | NUR ---
BMX RIDER AT BEDSIDE PATIENT ALSO WITH LUNCH TRAY SEAMLESS TUBE ROLLER TO ATTEMPT [facility] THERAPY AND RESPIRATORY DRUG AT A LATER TIME
--- NOTE | 2019-01-30 13:28 | NUR ---
CHANGED IVF BAG. PT TOLERATED WELL. NO OTHER NEEDS AT THIS TIME.
--- NOTE | 2019-01-30 15:52 | NUR ---
VITAL SIGNS TAKEN, PT STABLE. NO SIGNS OF DISTRESS NOTED. DENIES PAIN OR SOB.
[2019-01-30 16:00] VITALS: BP 114/61
--- NOTE | 2019-01-30 17:32 | NUR ---
PT STABLE, NO SIGNS OF DISTRESS NOTED. RESTING IN BED. PT DENIES ANY PAIN OR SOB. WILL CONTINUE TO MONITOR.
--- NOTE | 2019-01-30 19:20 | NUR ---
ENDORSED PT TO LIN MCKNIGHT FOR CONTINUITY OF CARE. PT STABLE.
--- NOTE | 2019-01-30 20:00 | NUR ---
RECEIVED REPORT FROM BRYSON CEBALLOS.PT IS AWAKE ALERT AND ORIENTED.RESP. UNLABORED W/O2 AT 2 L/NC.NO C/O PAIN OR DISCOMFORT .CARE PLAN DISCUSSED W/PT.HE VERBALIZED UNDERSTANDING.SL PATENT.WILL CONTINUE MONITORING.
[2019-01-30] MEDS: SIMETHICONE 80 MG TAB.CHEW PO PRN (23:32)
[2019-01-31] VITALS: BP 110/60
--- NOTE | 2019-01-31 | NUR ---
HAD C/O HAVING GAS IN HIS STOMACH.MYLICON 80MG PO GIVEN EARLIER.HE HAS NO COMPLAIN NOW.
[2019-01-31] MEDS: ALBUTEROL SULFATE/IPRATROPIU 3 ML SOL IH SCH ×3 (07:25→19:17)
--- NOTE | 2019-01-31 07:35 | NUR ---
RECEIVED REPORT FROM UNDERCUTTER OPERATOR NURSE. PT AAOX4, RESPIRATIONS EVEN AND UNLABORED ON 2L VIA N/C, NO SIGNS OF SOB. ABDOMEN SOFT, ACTIVE BS. SKIN IS INTACT, WARM TO TOUCH. IV ON RT FA 20 GA RUNNING IVF PER ORDER. NO C/O PAIN AT THIS TIME. REVIEWED POC WITH PT, PT VERBALIZES UNDERSTANDING.
[2019-01-31 07:43] LABS: BASOPHILS % (AUTO) 0.2 % (0.0-2.0); EOSINOPHILS # (AUTO) 0.1 K/uL (0-0.4); EOSINOPHILS % (AUTO) 0.7 % (0.0-4.0); HEMATOCRIT 46.8 % (36-52); HEMOGLOBIN 15.3 g/dL (12.0-18.0); LYMPHOCYTES # (AUTO) 1.5 K/uL (2.0-11.5); MEAN CORPUSCULAR HEMOGLOBIN 27 pg (27-31); MEAN CORPUSCULAR HGB CONC 33 g/dL (33-37); MEAN CORPUSCULAR VOLUME 82.6 fL (80-94); MONOCYTES # (AUTO) 1.3 K/uL (0.8-1.0); NEUTROPHILS # (AUTO) 7.8 K/uL (1.8-7.7); NEUTROPHILS % (AUTO) 73.1 % (42.2-75.2); PLATELET COUNT (AUTO) 207 K/uL (140-450); RED BLOOD CELL COUNT(AUTO) 5.67 MIL/uL (4.20-6.10); RED CELL DISTRIBUTION WIDTH 15.2 % (11.6-13.7); WHITE BLOOD COUNT (AUTO) 10.6 K/uL (4.8-10.8)
[2019-01-31 07:49] LABS: ANION GAP 10.9 (8-16); CARBON DIOXIDE 32.1 mmol/L (21-32); CREATININE 0.9 mg/dL (0.7-1.3)
[2019-01-31 07:59] LABS: MAGNESIUM 1.9 mg/dL (1.8-2.4); PHOSPHORUS 4.7 mg/dL (2.5-4.9)
[2019-01-31 08:00] VITALS: BP 101/61
[2019-01-31] MEDS ORDERED: methylPREDNISolone SS 40 MG/ML VIAL IVP SCH ×2 (08:00→10:23)
--- NOTE | 2019-01-31 08:00 | NUR ---
PT SLEPT WELL.REPORT GIVEN TO KRISTY RN. PT'S CONDITION IS STABLE.
[2019-01-31] MEDS ORDERED: guaiFENesin DM 200/20 MG-10 ML 10 ML UDC PO PRN (08:10)
[2019-01-31] MEDS: LORATADINE 10 MG TAB PO SCH (10:15)
[2019-01-31] MEDS: FAMOTIDINE 20 MG TAB PO SCH (10:15)
[2019-01-31] MEDS: MONTELUKAST SODIUM 10 MG TAB PO SCH (10:15)
--- NOTE | 2019-01-31 10:15 | NUR ---
GIVEN MEDICATIONS PER ORDER. PT IS AWARE THAT HE WILL NOT BE DISCHARGED AND WILL STAY IN THE HOSPITAL TODAY.
[2019-01-31] MEDS: TIMOLOL OP 0.5% 5 ML BTL RIGHT EYE SCH (10:16)
--- NOTE | 2019-01-31 10:37 | NUR ---
PT STATES HE IS BLIND ON THE RT EYE AND HAS PRESSURE ON THE LT EYE. GIVEN DROPS PER ORDER. PT REQUESTED ROBITUSSIN FOR COUGH AND PHLEGM.
[2019-01-31] MEDS: SIMETHICONE 80 MG TAB.CHEW PO PRN (13:18)
--- NOTE | 2019-01-31 13:19 | NUR ---
PT C/O GASSINESS AND BLOATEDNESS. MEDICATED WITH SIMETHICONE PER ORDER. WILL REASSESS WITHIN 1 HOUR.
[2019-01-31] MEDS: NACL 0.9% 1,000 ML IV SCH (15:59)
[2019-01-31 16:00] VITALS: BP 112/72
--- NOTE | 2019-01-31 17:20 | NUR ---
PT IS SITTING IN CHAIR, NO C/O PAIN OR SIGNS OF DISTRESS. GIVEN POPSICLE PER PT REQUEST.
--- NOTE | 2019-01-31 19:10 | NUR ---
ENDORSED PT TO TOWER CLEANER NURSE. PT HAS NO SIGNS OF DISTRESS AT THIS TIME.
--- NOTE | 2019-01-31 19:11 | NUR ---
RECEIVED REPORT FROM AM NURSE. PT SITTING UP AT BEDSIDE, AWAKE ALERT AND ORIENTED X4. ABLE TO ANSWER QUESTIONS AND FOLLOW COMMANDS. VISIBLE CHEST RISE AND FALL, ON 2L N.C. RIGHT FOREARM 20G INTACT AND INFUSING WELL. NO C/O DISCOMFORT. SAFETY MEASURES IN PLACE. CALL LIGHT WITHIN REACH.
[2019-01-31] MEDS: methylPREDNISolone SS 40 MG/ML VIAL IVP SCH (20:43)
--- NOTE | 2019-01-31 20:43 | NUR ---
MEDICAITONS ADMINISTERED, PT TOLERATED WELL.
--- NOTE | 2019-01-31 21:05 | NUR ---
RT CALLED FOR BREATHING TX.
[2019-01-31] MEDS: ALBUTEROL SULFATE/IPRATROPIU 3 ML SOL IH PRN (21:25)
--- NOTE | 2019-01-31 22:15 | NUR ---
PT BORUGHT TWO PUDDINGS AND 3 JUICES PER REQUEST.
[2019-02-01] VITALS: BP 127/74
--- NOTE | 2019-02-01 | NUR ---
VITALS TAKEN. PT SLEEPING BUT EASILY AWAKEN. BREATHING EQUAL AND UNLABORED ON 2L O2 NC. WILL CONTINUE TO MONITOR.
--- NOTE | 2019-02-01 02:00 | NUR ---
ROUNDED ON PT. PT SLEEPING WHILE SITTING UP IN BED. VISIBLE CHEST RISE AND FALL ON 2L O2 VIA N.C. NO VISIBLE SIGNS OF DISTRESS
[2019-02-01] MEDS: methylPREDNISolone SS 40 MG/ML VIAL IVP SCH ×2 (05:02→13:27)
--- NOTE | 2019-02-01 05:08 | NUR ---
MEDICATION ADMINISTERED. PT SLEEPING BUT EASILY AWAKEN BY VOICE. NO C/O DISCOMFORT. CALL LIGHT WITHIN REACH.
--- NOTE | 2019-02-01 07:05 | NUR ---
ENDORSED PT TO AM NURSE. PT SITING UP AWAKE IN BED. PT IN STABLE CONDITION AT THIS TIME.
--- NOTE | 2019-02-01 07:15 | NUR ---
RECEIVED HAND OFF REPORT FROM PM RN PT IS AWAKE IN BED PT APPEARS STABLE AND IN NO APPARENT DISTRESS. ALL SAFETY MEASURES ARE IN PLACE NC ON 2L. IVF INFUSING IV SITE IS PATENT AND SHOWS NO SIGNS OF INFILTRATION OR INFLAMMATION. WILL CONTINUE TO MONITOR.
[2019-02-01] MEDS: ALBUTEROL SULFATE/IPRATROPIU 3 ML SOL IH SCH ×2 (07:25→13:25)
[2019-02-01 08:10] VITALS: BP 119/75
[2019-02-01 08:12] LABS: BASOPHILS % (AUTO) 0.1 % (0.0-2.0); HEMATOCRIT 48.9 % (36-52); LYMPHOCYTES # (AUTO) 1.1 K/uL (2.0-11.5); LYMPHOCYTES % (AUTO) 10.3 % (20.5-51.1); MEAN CORPUSCULAR HEMOGLOBIN 27 pg (27-31); MEAN CORPUSCULAR HGB CONC 33 g/dL (33-37); MEAN CORPUSCULAR VOLUME 82.6 fL (80-94); MONOCYTES # (AUTO) 0.5 K/uL (0.8-1.0); NEUTROPHILS # (AUTO) 8.7 K/uL (1.8-7.7); NEUTROPHILS % (AUTO) 84.6 % (42.2-75.2); PLATELET COUNT (AUTO) 224 K/uL (140-450); RED BLOOD CELL COUNT(AUTO) 5.92 MIL/uL (4.20-6.10); RED CELL DISTRIBUTION WIDTH 14.9 % (11.6-13.7); WHITE BLOOD COUNT (AUTO) 10.3 K/uL (4.8-10.8)
[2019-02-01 08:27] LABS: PHOSPHORUS 4.4 mg/dL (2.5-4.9)
[2019-02-01] MEDS: MONTELUKAST SODIUM 10 MG TAB PO SCH (08:37)
[2019-02-01] MEDS: LORATADINE 10 MG TAB PO SCH (08:37)
[2019-02-01] MEDS: TIMOLOL OP 0.5% 5 ML BTL RIGHT EYE SCH (08:38)
[2019-02-01] MEDS: NACL 0.9% 1,000 ML IV SCH (08:38)
[2019-02-01] MEDS: FAMOTIDINE 20 MG TAB PO SCH (08:38)
[2019-02-01 08:58] LABS: ANION GAP 12.5 (8-16); CARBON DIOXIDE 35.2 mmol/L (21-32); POTASSIUM 4.7 mmol/L (3.5-5.1)
[2019-02-01] MEDS ORDERED: TIM.5OS RIGHT EYE (09:02)
[2019-02-01] MEDS ORDERED: PRED20TA5 PO ×2 (09:06→09:08)
[2019-02-01] MEDS ORDERED: FAMO20TA13 PO (09:16)
[2019-02-01] MEDS ORDERED: BENZ-196 PO (09:16)
--- NOTE | 2019-02-01 09:25 | NUR ---
FREQUENT ROUNDING ON PT PT IS AWAKE IN BED PT APPEARS STABLE AND IN NO APPARENT DISTRESS. ALL SAFETY MEASURES ARE IN PLACE AND WILL CONTINUE TO MONITOR.
[2019-02-01] MEDS ORDERED: GUAI-646 PO (10:25)
--- NOTE | 2019-02-01 11:23 | NUR ---
PT AWAKE IN BED PT AWARE OF PLAN FOR DISCHARGE. OK WITH CHANGE IN PLAN OF CARE. STATED HE WILL MAKE ARRANGEMENTS FOR HIM TO LEAVE
[2019-02-01 13:07] VITALS: BP 119/75
[2019-02-01] MEDS ORDERED: SIMETHICONE 80 MG TAB.CHEW PO SCH (13:20)
--- NOTE | 2019-02-01 13:45 | NUR ---
REMOVED IV IV TIP INTACT. ADMINISTERED SOLUMEDRAL AND MEDICATION FOR BLOATING. REVIEWED DISCHARGE INFORMATION INFORMED PT TO FOLLOW UP WITHIN 2 WEEKS WITH PRIMARY CARE PROVIDER. TAKE MEDICATIONS PRESCRIBED AND TO GRANTS OFFICER HIS NEW PRECRIPTIONS AT THE PHARMACY. ANSWERED ALL OF THE PATIENTS QUESTIONS. PT ASSISTED OFF THE UNIT WITH WHEELCHAIR.
[2019-02-02] MEDS ORDERED: DORZ10SO3 OP (23:03)
[2019-02-02] MEDS ORDERED: [UNRECOGNIZED DRUG - CODE] OP (23:17)
== END 2019-02-01 13:50 | disposition home or self-care (01) | DRG 133 ==
LOC: MED 11:00 → MTU 14:04
PROVIDERS: ADMIT General Practice; ATTEND General Practice
DX: J96.01 Acute respiratory failure with hypoxia (principal); J44.1 Chronic obstructive pulmonary disease with (acute) exacerbation; E83.39 Other disorders of phosphorus metabolism; J45.901 Unspecified asthma with (acute) exacerbation; K21.9 Gastro-esophageal reflux disease without esophagitis; H54.7 Unspecified visual loss; R73.03 Prediabetes; E78.5 Hyperlipidemia, unspecified; H40.9 Unspecified glaucoma
CPT/HCPCS: 36415; 36600; 71045; 80048; 80053; 82803; 83036; 83735; 84100; 84436; 84443; 84484; 85025; 87081; 93005; 94640; 96365; 96375; 99285; J2920; J2930; J3475; J7030; J7512; J7613; J7620; J7644; Q0092

== ENCOUNTER 2019-02-02 20:23 | Inpatient (IN) | payer MEDICAID ==
[~2019-02-02] VITALS: Ht 170.2 cm; Wt 83.0 kg
[~2019-02-02 20:23] MED LIST changes: -ALBU-74 IH; +BENZ-196 PO; -DORZ10SO3 RIGHT EYE; +GUAI-646 PO; -LACT10CA PO; -LEVO750T2 PO; -LORA10TA19 PO; -PRED10TA5 PO; +PRED20TA5 PO; +TIM.5OS RIGHT EYE; -TIMOLOL PT; -[UNRECOGNIZED DRUG - CODE] OP
[2019-02-02 20:28] VITALS: BP 134/84
--- NOTE | 2019-02-02 20:31 | NUR ---
TO BED # 10 VIA WHEELCHAIR
--- NOTE | 2019-02-02 20:35 | NUR ---
33/M PRESENTS TO ED, C/O SOB X1 DAY. PT WAS RECENTLY DISCHARGED YESTERDAY FOR COPD EXACERBATION. PT AWAKE AND ALERT, R EYE GLAUCOMA NOTED, SKIN FLUSHED, MILDLY CLAMMY, SPO2 84% ON RA, SPO2 97% ON 4L O2 FACEMASK, RR 30 TACHYPNIC, DEEP, EVEN AND MILDLY LABORED. LUNG SOUNDS WITH BL EXP WHEEZE. PT C/O L SIDED ABD PAIN X1 MONTH INTERMITTENTLY. PLACED ON MONITOR, DR PEACE MADE AWARE. HX COPD RX ADVAIR, SPIRIVA, ALBUTEROL NEB, COSOPT, MARI EYEDROPS, TIMOLOL DROPS, SINGULAIR
[2019-02-02] MEDS ORDERED: ALBUTEROL SULFATE/IPRATROPIU 3 ML SOL IH ONE ×2 (20:55→22:10)
--- NOTE | 2019-02-02 21:02 | NUR ---
Respiratory Therapist at bedside for respiratory intervention.
--- NOTE | 2019-02-02 21:02 | NUR ---
Dr. Arauz examining patient.
[2019-02-02] MEDS ORDERED: MAG SULF 2000 MG/WATER PREMIX 50 ML IV ONE (21:15)
[2019-02-02] MEDS ORDERED: NACL 0.9% 1,000 ML IV ONE (21:15)
[2019-02-02] MEDS ORDERED: methylPREDNISolone SS 125 MG/2 ML VIAL IVP ONE ×2 (21:15→22:30)
[2019-02-02 22:06] LABS: PROTHROMBIN TIME 9.9 secs (10.8-13.4)
[2019-02-02 22:11] LABS: BASOPHILS % (AUTO) 0.2 % (0.0-2.0); EOSINOPHILS # (AUTO) 0.1 K/uL (0-0.4); EOSINOPHILS % (AUTO) 0.8 % (0.0-4.0); HEMATOCRIT 50.1 % (36-52); HEMOGLOBIN 16.4 g/dL (12.0-18.0); LYMPHOCYTES # (AUTO) 2.9 K/uL (2.0-11.5); LYMPHOCYTES % (AUTO) 19.1 % (20.5-51.1); MEAN CORPUSCULAR HEMOGLOBIN 27 pg (27-31); MEAN CORPUSCULAR HGB CONC 33 g/dL (33-37); MEAN CORPUSCULAR VOLUME 82.7 fL (80-94); MONOCYTES # (AUTO) 1.8 K/uL (0.8-1.0); NEUTROPHILS # (AUTO) 10.3 K/uL (1.8-7.7); NEUTROPHILS % (AUTO) 67.9 % (42.2-75.2); PLATELET COUNT (AUTO) 252 K/uL (140-450); RED BLOOD CELL COUNT(AUTO) 6.06 MIL/uL (4.20-6.10); RED CELL DISTRIBUTION WIDTH 14.7 % (11.6-13.7); WHITE BLOOD COUNT (AUTO) 15.1 K/uL (4.8-10.8)
[2019-02-02] MEDS ORDERED: PIPERACILLIN/TAZOBACTAM 3.375 GM in DEXTROSE 5% 50 ML IV ONE (22:15)
[2019-02-02 22:29] LABS: ANION GAP 8.3 (8-16); CARBON DIOXIDE 34.3 mmol/L (21-32); CREATININE 1.3 mg/dL (0.7-1.3); POTASSIUM 3.6 mmol/L (3.5-5.1)
[2019-02-02] MEDS ORDERED: LORazepam 2 MG/ML VIAL IM/IVP PRN (22:30)
[2019-02-02] MEDS ORDERED: MORPHINE SULFATE 2 MG/ML SYR IVP PRN (22:30)
[2019-02-02] MEDS ORDERED: ALBUTEROL SULFATE/IPRATROPIU 3 ML SOL IH PRN (22:30)
[2019-02-02] MEDS ORDERED: HYDROcodone/APAP 5/325 MG 1 TAB TAB PO PRN (22:30)
[2019-02-02] MEDS ORDERED: ONDANSETRON 4 MG/2 ML VIAL IM/IVP PRN (22:30)
[2019-02-02] MEDS ORDERED: ACETAMINOPHEN 325 MG TAB PO PRN (22:30)
[2019-02-02] MEDS ORDERED: DOCUSATE SODIUM 100 MG GELCAP PO PRN (22:30)
[2019-02-02 22:34] LABS: ALBUMIN 3.8 g/dL (3.4-5.0); TOTAL BILIRUBIN 0.5 mg/dL (0.0-1.0)
[2019-02-02] MEDS ORDERED: PIPERACILLIN/TAZOBACTAM 3.375 GM VIAL IV ONE (22:36)
--- NOTE | 2019-02-02 22:42 | NUR ---
PT IN BED RESTING, VSS, RR EVEN UNLABORED, NO C/O PAIN, SNACKS PROVIDED, WILL CONTINUE TO MONITOR CLOSELY.
[2019-02-02] MEDS ORDERED: DORZ10SO3 OP (23:03)
[2019-02-02 23:08] LABS: PHOSPHORUS 3.4 mg/dL (2.5-4.9); THYROID STIMULATING HORMONE 1.52 uIU/mL (0.34-3.74)
[2019-02-02] MEDS ORDERED: [UNRECOGNIZED DRUG - CODE] OP (23:17)
[2019-02-02 23:29] LABS: APPEARANCE,URINE CLEAR (CLEAR); BILIRUBIN,URINE NEGATIVE (NEGATIVE); BLOOD, URINE NEGATIVE (NEGATIVE); COLOR,URINE YELLOW (YELLOW); LEUKOCYTE ESTERASE ,URINE NEGATIVE (NEGATIVE); NITRITE, URINE NEGATIVE (NEGATIVE); PH,URINE 6.5 (5.0-9.0); UGLUCOSE NEGATIVE (NEGATIVE)
--- NOTE | 2019-02-02 23:30 | NUR ---
Patient arrived in unit via gurney, accompanied by two TURBO OPERATOR's; patient A/Ox4, able to make needs known, Colombian speaking, able to ambulate from gurney to bed without assistance. Introduced self, updated board, oriented patient to room and hospital environment. Chief complaint is SOB; DX is COPD exacerbation. No SOB or distress noted, on O2 2LPM via nasal cannula. IV site on left hand, 22 gauge, intact, running IVF at 25mL/hr. Skin intact. Bed in the lowest position, call light within reach. Initial assessment done. Vitals stable upon admission. Will continue to monitor.
--- NOTE | 2019-02-02 23:30 | NUR ---
Patient will be admitted to care of DR. Vel GARCIA. Admited to [facility]. Will go to room 125A. Belongings list completed. BEDSIDE report to LIN REYES.
[2019-02-02 23:35] LABS: BARBITURATE, URINE NEG. ng/ml (NEG <=200); BENZODIAZEPINE, URINE NEG. ng/mL (NEG <=200); CANNABINOID, URINE NEG. ng/mL (NEG <=50); COCAINE, URINE NEG. ng/mL (NEG <=300); OPIATE, URINE NEG. ng/mL (NEG <=2000); PHENCYCLIDINE SCREEN,URINE NEG. ng/mL (NEG <=25)
[2019-02-03] VITALS: BP 138/63
[2019-02-03] MEDS ORDERED: BENZONATATE 100 MG CAPLF PO PRN (00:35)
[2019-02-03] MEDS ORDERED: guaiFENesin 600 MG TABER PO SCH (00:45)
[2019-02-03] MEDS: NACL 0.9% 1,000 ML IV SCH ×3 (00:47→21:26)
--- NOTE | 2019-02-03 00:50 | NUR ---
Due meds given, tolerated well.
[2019-02-03] MEDS ORDERED: MONT10TA35 PO (00:53)
[2019-02-03] MEDS ORDERED: LORA10TA19 PO (00:53)
--- NOTE | 2019-02-03 02:23 | NUR ---
Rounds done; patient resting comfortably.
[2019-02-03 04:00] VITALS: BP 103/59
[2019-02-03] MEDS ORDERED: PIPERACILLIN/TAZOBACTAM 3.375 GM VIAL IV ONE (04:04)
[2019-02-03] MEDS: methylPREDNISolone SS 125 MG/2 ML VIAL IVP SCH ×3 (04:13→21:28)
[2019-02-03] MEDS: PIPERACILLIN/TAZOBACTAM 3.375 GM in DEXTROSE 5% 50 ML IV SCH ×3 (04:13→21:30)
--- NOTE | 2019-02-03 04:50 | NUR ---
Vitals taken; patient asleep, eyes closed, visible chest rise and fall noted.
[2019-02-03 06:29] LABS: ANION GAP 9.6 (8-16); CARBON DIOXIDE 33.6 mmol/L (21-32); CREATININE 1.4 mg/dL (0.7-1.3); POTASSIUM 5.2 mmol/L (3.5-5.1)
--- NOTE | 2019-02-03 06:50 | NUR ---
Patient vitals stable, due meds given. Will endorse patient to AM shift RN for continuity of care.
[2019-02-03] MEDS ORDERED: ALBUTEROL SULFATE/IPRATROPIU 3 ML SOL IH SCH (07:00)
[2019-02-03 07:06] LABS: BASOPHILS % (AUTO) 0.1 % (0.0-2.0); EOSINOPHILS % (AUTO) 0.2 % (0.0-4.0); HEMATOCRIT 46.4 % (36-52); HEMOGLOBIN 15.3 g/dL (12.0-18.0); LYMPHOCYTES # (AUTO) 0.7 K/uL (2.0-11.5); MEAN CORPUSCULAR HEMOGLOBIN 28 pg (27-31); MEAN CORPUSCULAR HGB CONC 33 g/dL (33-37); MEAN CORPUSCULAR VOLUME 83.5 fL (80-94); MONOCYTES # (AUTO) 0.1 K/uL (0.8-1.0); MONOCYTES % (AUTO) 1.4 % (1.7-9.3); NEUTROPHILS # (AUTO) 8.1 K/uL (1.8-7.7); NEUTROPHILS % (AUTO) 90.3 % (42.2-75.2); PLATELET COUNT (AUTO) 259 K/uL (140-450); RED BLOOD CELL COUNT(AUTO) 5.55 MIL/uL (4.20-6.10); WHITE BLOOD COUNT (AUTO) 8.9 K/uL (4.8-10.8)
[2019-02-03] MEDS: ALBUTEROL SULFATE/IPRATROPIU 3 ML SOL IH SCH ×3 (07:21→19:40)
--- NOTE | 2019-02-03 07:25 | NUR ---
Received bedside change of shift report from PM nurse. Patient A/Ox4 and able to make needs known. Vitals are stable and No SOB or signs of distress noted. On O2 2LPM via nasal cannula with clear lung sounds throughout. NSR with sinus arrythmia on monitoring specialist. IV site on left hand, 22 gauge with insertion site/dressing dry, patent, and intact; running IVF NS at 60mL/hr. Skin warm, dry, and intact with cap refill <3sec. Bowel sounds active with last BM yesterday 02/02/19. Urine clear cameron color in bedside urinal. Bed in semi fowlers low position, call light within reach. Will continue to monitor throughout day shift.
--- NOTE | 2019-02-03 07:52 | NUR ---
PATIENT HAS BEEN SCREENED AND CATEGORIZED MODERATE NUTRITION RISK. PATIENT WILL BE SEEN WITHIN 3-5 DAYS OF ADMISSION. 02/05/[address]
[2019-02-03 08:00] VITALS: BP 117/68
--- NOTE | 2019-02-03 08:43 | NUR ---
PT TO RADIOLOGY FOR CXR IN WHEELCHAIR
[2019-02-03 08:57] LABS: CHOL/HDL RATIO 2.9 (1-4.5); MAGNESIUM 2.4 mg/dL (1.8-2.4); PHOSPHORUS 3.9 mg/dL (2.5-4.9)
--- NOTE | 2019-02-03 09:50 | NUR ---
GAVE SCHEDULED MEDS, VITALS ARE STABLE, AND NO SIGNS OF DISTRESS NOR SOB ARE NOTED AT THIS TIME
[2019-02-03] MEDS: MONTELUKAST SODIUM 10 MG TAB PO SCH (09:54)
[2019-02-03] MEDS: guaiFENesin 600 MG TABER PO SCH ×2 (09:55→21:28)
[2019-02-03] MEDS: PANTOPRAZOLE 40 MG TABEC PO SCH (09:56)
[2019-02-03] MEDS: TIMOLOL OP 0.5% 5 ML BTL RIGHT EYE SCH (09:58)
[2019-02-03] MEDS: LORATADINE 10 MG TAB PO SCH (10:02)
[2019-02-03] MEDS ORDERED: PATIROMER CALCIUM SORBITEX 8.4 GM PKT PO SCH (11:00)
[2019-02-03] MEDS: ALBUTEROL SULFATE/IPRATROPIU 3 ML SOL IH PRN (11:56)
[2019-02-03 12:00] VITALS: BP 139/104
--- NOTE | 2019-02-03 13:00 | NUR ---
GAVE SCHEDULED MEDS, VITALS ARE STABLE, AND NO SIGNS OF DISTRESS NOR SOB ARE NOTED AT THIS TIME. GOT PATIENT 1L OF WARM WATER WITH MILAD REQUESTED. PATIENT DID NOT NEED ANYTHING ELSE AT THIS TIME. WILL CONTINUE TO MONITOR.
[2019-02-03 16:00] VITALS: BP 110/58
--- NOTE | 2019-02-03 16:00 | NUR ---
VITALS ARE STABLE, AND NO SIGNS OF DISTRESS NOR SOB ARE NOTED AT THIS TIME. PATIENT IS CURRENTLY SITTING ON CHAIR COMFORTABLY AND WATCHING TV. I FOLDED PATIENT'S BED COVERS REQUESTED. WILL CONTINUE TO MONITOR.
--- NOTE | 2019-02-03 19:35 | NUR ---
RECEIVED PT FROM DAY SHIFT NURSE PT IS AAOX4 AMBULATORY IV ON RT HAND INFUSING WELL ON TELEMETRY ST NOT RESP DISTRESS NOTED INITIAL ASSESSMENT DONE
[2019-02-03 20:00] VITALS: BP 135/60
--- NOTE | 2019-02-03 21:30 | NUR ---
MEDIC GIVEN ORDER PT IS ASSISTING WITH SNACK GOOD APPETITE ON TELEMETRY ST, REP THERAPY IS HERE AND GIVE BREATHING TX
[2019-02-03 21:42] LABS: ANION GAP 11.5 (8-16); CREATININE 1.2 mg/dL (0.7-1.3); POTASSIUM 4.5 mmol/L (3.5-5.1)
[2019-02-04] VITALS: BP 114/61
--- NOTE | 2019-02-04 | NUR ---
PT SLEEPING WELL ON TELE ST NOT DISTRESS NOTED IV ON RT HAND INFUSING WELL
[2019-02-04 04:00] VITALS: BP 127/52
--- NOTE | 2019-02-04 04:00 | NUR ---
SPONGE BATH ;GIVEN LINEN CHANGED, PT CAME BACK TO SLEEP O;N TELEMETRY ST
[2019-02-04] MEDS: PIPERACILLIN/TAZOBACTAM 3.375 GM in DEXTROSE 5% 50 ML IV SCH ×3 (04:40→21:02)
[2019-02-04] MEDS: methylPREDNISolone SS 40 MG/ML VIAL IVP SCH ×3 (04:41→21:02)
[2019-02-04] MEDS: ALBUTEROL SULFATE/IPRATROPIU 3 ML SOL IH SCH ×3 (06:26→19:39)
--- NOTE | 2019-02-04 06:27 | NUR ---
PT REMAIN STABLE , NOT SOB NOTED PT WILL BE ENDORSED TO DAY SHIFT NURSE FOR CONTINUE OF CARE.
[2019-02-04 06:30] LABS: ANION GAP 9.9 (8-16); CARBON DIOXIDE 32.4 mmol/L (21-32); CREATININE 1.1 mg/dL (0.7-1.3); POTASSIUM 4.3 mmol/L (3.5-5.1)
[2019-02-04 06:43] LABS: HEMATOCRIT 43.1 % (36-52); HEMOGLOBIN 14.5 g/dL (12.0-18.0); MEAN CORPUSCULAR HEMOGLOBIN 28 pg (27-31); MEAN CORPUSCULAR HGB CONC 34 g/dL (33-37); MEAN CORPUSCULAR VOLUME 83.1 fL (80-94); PLATELET COUNT (AUTO) 385 K/uL (140-450); RED BLOOD CELL COUNT(AUTO) 5.19 MIL/uL (4.20-6.10); RED CELL DISTRIBUTION WIDTH 14.8 % (11.6-13.7); WHITE BLOOD COUNT (AUTO) 16.4 K/uL (4.8-10.8)
--- NOTE | 2019-02-04 07:20 | NUR ---
RECEIVED REPORT FROM HEAD BANDER AND LINER OPERATOR NURSE. PATIENT IS SITTING UP IN BED SLEEPING. PATIENT IS ON 2L NASAL CANNULA. NO SIGNS OF RESP DISTRESS. WILL CONTINUE TO MONITOR.
[2019-02-04 07:31] LABS: LYMPHOCYTES % (MANUAL) 10 % (20-46); MONOCYTES % (MANUAL) 4 % (5-12)
[2019-02-04 07:36] LABS: MAGNESIUM 2.1 mg/dL (1.8-2.4); PHOSPHORUS 3.9 mg/dL (2.5-4.9)
[2019-02-04 08:00] VITALS: BP 127/55
[2019-02-04] MEDS: MONTELUKAST SODIUM 10 MG TAB PO SCH (09:45)
[2019-02-04] MEDS: LORATADINE 10 MG TAB PO SCH (09:45)
[2019-02-04] MEDS: guaiFENesin 600 MG TABER PO SCH ×2 (09:45→21:02)
[2019-02-04] MEDS: TIMOLOL OP 0.5% 5 ML BTL RIGHT EYE SCH (09:45)
--- NOTE | 2019-02-04 09:45 | NUR ---
ADMINISTERED MORNING MEDICATION TO PATIENT. PATIENT TOLERATED PO WELL AND EYE DROP. NO SOB OR COMPLAINTS AT THIS TIME.
[2019-02-04] MEDS: PANTOPRAZOLE 40 MG TABEC PO SCH (09:46)
[2019-02-04 12:00] VITALS: BP 125/74
[2019-02-04 16:00] VITALS: BP 122/64
--- NOTE | 2019-02-04 19:00 | NUR ---
RECEIVED PT FROM SARAH RN ,PT AAOX4 VERBALIZED HIS NEED, AMBULATORY, IV ON RT HAND GAUGE # 24 INFUSING WELL, NOT SOB NOTED ON TELEMETRY SR, INITIAL ASSESSMENT DONE
[2019-02-04 20:00] VITALS: BP 122/72
--- NOTE | 2019-02-04 20:20 | NUR ---
REPORT GIVEN TO PADDY RN FOR CONTINUE O CARE PT ON STABLE CONDITION AT THIS TIME
--- NOTE | 2019-02-04 20:21 | NUR ---
RECEIVED REPORT FROM LIN LOZANO. PT SITTING IN CHAIR AT BEDSIDE WATCHING TV. AWAKE, ALERT AND ORIENTED X4. ABLE TO ANSWER QUESTIONS AND FOLLOW COMMANDS. VISIBLE CHEST RISE AND FALL ON 2L O2 VIA N.C., NO DISTRESS NOTED. AMBULATORY WITH STEADY GAIT. RIGHT HAND 24G INTACT AND INFUSING WELL. SAFETY MEASURES IN PLACE. CALL LIGHT WITHIN REACH.
--- NOTE | 2019-02-04 21:02 | NUR ---
IV ANTIBIOTICS HUNG AND MEDICATION ADMINISTERED. PT TOLERATED WELL. PT BROUGHT SNACKS PER REQUEST.
[2019-02-04] MEDS: NACL 0.9% 1,000 ML IV SCH (23:50)
[2019-02-05] VITALS: BP 118/76
--- NOTE | 2019-02-05 | NUR ---
VITALS TAKEN. PT SITTING UP IN CHAIR AT BEDSIDE ON PHONE. NO C/O DISCOMFORT. BREATHING EQUAL AND UNLABORED ON 2L 02 VIA N.C.
--- NOTE | 2019-02-05 02:30 | NUR ---
ROUNDED ON PT. PT SLEEPING IN BED SITTING UP. VISIBLE CHEST RISE AND FALL ON 2L N.C. NO VISIBLE SIGNS OF DISTRESS. CALL LIGHT WITHIN REACH.
[2019-02-05 04:00] VITALS: BP 100/64
[2019-02-05] MEDS: methylPREDNISolone SS 40 MG/ML VIAL IVP SCH ×2 (05:03→12:38)
[2019-02-05] MEDS: PIPERACILLIN/TAZOBACTAM 3.375 GM in DEXTROSE 5% 50 ML IV SCH ×2 (05:03→12:39)
--- NOTE | 2019-02-05 05:03 | NUR ---
MEDICATIONS ADMINISTERED. PT SLEEPING BUT AWAKENS EASILY BY VOICE. NO C/O DISCOMFORT. BREATHING EQUAL AND UNLABORED ON 2L N.C. CALL LIGHT WITHIN REACH. BROUGHT PT FRESH ICE WATER, PER REQUEST.
[2019-02-05 06:27] LABS: HEMATOCRIT 45.8 % (36-52); HEMOGLOBIN 14.9 g/dL (12.0-18.0); MEAN CORPUSCULAR HEMOGLOBIN 27 pg (27-31); MEAN CORPUSCULAR HGB CONC 33 g/dL (33-37); MEAN CORPUSCULAR VOLUME 83.3 fL (80-94); PLATELET COUNT (AUTO) 293 K/uL (140-450); RED BLOOD CELL COUNT(AUTO) 5.49 MIL/uL (4.20-6.10); WHITE BLOOD COUNT (AUTO) 16.1 K/uL (4.8-10.8)
[2019-02-05 06:31] LABS: ANION GAP 11.8 (8-16); CARBON DIOXIDE 30.5 mmol/L (21-32); CREATININE 1.1 mg/dL (0.7-1.3); POTASSIUM 4.3 mmol/L (3.5-5.1)
[2019-02-05] MEDS: ALBUTEROL SULFATE/IPRATROPIU 3 ML SOL IH SCH ×2 (06:36→12:55)
[2019-02-05 06:40] LABS: MAGNESIUM 2.2 mg/dL (1.8-2.4); PHOSPHORUS 3.8 mg/dL (2.5-4.9)
--- NOTE | 2019-02-05 07:10 | NUR ---
RECEIVED REPORT FROM AIRBRUSH ARTIST TECHNICAL NURSE. PATIENT IS SITTING UP IN BED SLEEPING. PATIENT IS A&O X 4. O2 VIA NASAL CANNULA AT 3L. IV TO RIGHT HAND 24G. LUNGS SOUND CLEAR, DIMINSHED AT BASES. VITAL SIGNS WNL. WILL CONTINUE TO MONITOR.
[2019-02-05 08:00] VITALS: BP 138/73
[2019-02-05] MEDS: guaiFENesin 600 MG TABER PO SCH (08:08)
[2019-02-05] MEDS: MONTELUKAST SODIUM 10 MG TAB PO SCH (08:08)
[2019-02-05] MEDS: PANTOPRAZOLE 40 MG TABEC PO SCH (08:08)
[2019-02-05] MEDS: LORATADINE 10 MG TAB PO SCH (08:08)
[2019-02-05] MEDS: TIMOLOL OP 0.5% 5 ML BTL RIGHT EYE SCH (08:09)
[2019-02-05 08:50] LABS: LYMPHOCYTES % (MANUAL) 8 % (20-46); MONOCYTES % (MANUAL) 8 % (5-12)
[2019-02-05] MEDS: ALBUTEROL SULFATE/IPRATROPIU 3 ML SOL IH PRN (09:15)
[2019-02-05] MEDS ORDERED: AZIT250T3 PO (10:09)
[2019-02-05] MEDS ORDERED: PRED20TA5 PO (10:09)
[2019-02-05 12:00] VITALS: BP 123/72
--- NOTE | 2019-02-05 14:30 | NUR ---
DISCHARGED PATIENT TO HOME WITH FAMILY MEMBER. IV CATHETER WAS REMOVED AND INTACT. PATIENT WAS TAKEN OFF TELEMETRY BOX. PATIENT HAD ALL BELONGINGS UPON DISCHARGE. NO S/S OF RESP DISTRESS, NO SOB.
== END 2019-02-05 14:30 | disposition home or self-care (01) | DRG 469 ==
LOC: MED 20:23 → MMU 22:35
PROVIDERS: ADMIT General Practice; ATTEND General Practice
DX: N17.0 Acute kidney failure with tubular necrosis (principal); J96.21 Acute and chronic respiratory failure with hypoxia; R65.11 Systemic inflammatory response syndrome (SIRS) of non-infectious origin with acute organ dysfunction; J44.1 Chronic obstructive pulmonary disease with (acute) exacerbation; K21.9 Gastro-esophageal reflux disease without esophagitis; E78.5 Hyperlipidemia, unspecified; H40.9 Unspecified glaucoma; J96.22 Acute and chronic respiratory failure with hypercapnia; Z60.2 Problems related to living alone; R73.03 Prediabetes; E87.5 Hyperkalemia; E86.0 Dehydration
CPT/HCPCS: 36415; 36600; 71045; 71046; 80048; 80053; 80305; 81003; 82803; 83036; 83605; 83690; 83735; 83880; 84100; 84443; 84484; 85025; 85610; 85730; 87040; 87070; 87081; 87186; 87205; 93005; 94640; 96365; 96368; 96375; 99285; J2543; J2920; J2930; J3475; J7030; J7042; J7060; J7620; Q0092

== ENCOUNTER 2020-08-13 18:50 | Inpatient (IN) | payer MEDICAID, SELFPAY ==
[~2020-08-13] VITALS: Ht 170.2 cm; Wt 87.5 kg
[~2020-08-13 18:50] MED LIST changes: +AZIT250T3 PO; -BENZ-196 PO; +DORZ10SO3 OP; -FAMO20TA13 PO; -GUAI-646 PO; +LORA10TA19 PO; +[UNRECOGNIZED DRUG - CODE] OP
[2020-08-13 18:54] VITALS: BP 134/91
--- NOTE | 2020-08-13 18:55 | NUR ---
Patient transferred to bed 4 via wheelchair by triage nurse. RN evaluating the patient at bedside.
[2020-08-13] MEDS ORDERED: methylPREDNISolone SS 125 MG/2 ML VIAL IVP ONE (19:00)
[2020-08-13] MEDS ORDERED: NACL 0.9% 500 ML IV ONE ×2 (19:00→20:45)
[2020-08-13] MEDS ORDERED: ALBUTEROL SULFATE/IPRATROPIU 3 ML SOL IH ONE ×3 (19:00→21:45)
--- NOTE | 2020-08-13 19:00 | NUR ---
34 y/o male from home c/o sob/difficulty breathing secondary to asthma exacerbation. Pt states he ran out of inhaler and began having sob this morning. Pt tachypnic and presents with labored respirations. Wheezing noted upon auscultation. Skin warm and dry. medhx: asthma
--- NOTE | 2020-08-13 19:00 | NUR ---
Dr. Arauz is evaluating the patient at bedside.
[2020-08-13] MEDS ORDERED: methylPREDNISolone SS 125 MG/2 ML VIAL IM ONE (19:10)
--- NOTE | 2020-08-13 19:11 | NUR ---
RT at bedside for breathing treatment
--- NOTE | 2020-08-13 20:30 | NUR ---
ABG BEING DRAWN
[2020-08-13] MEDS ORDERED: MAG SULF 2000 MG/WATER PREMIX 50 ML IV ONE (20:45)
[2020-08-13 22:03] LABS: BASOPHILS # (AUTO) 0.2 K/uL (0.00-0.22); BASOPHILS % (AUTO) 1.4 % (0.0-2.0); EOSINOPHILS # (AUTO) 0.1 K/uL (0-0.4); EOSINOPHILS % (AUTO) 0.9 % (0.0-4.0); HEMATOCRIT 49.6 % (36-52); HEMOGLOBIN 16.1 g/dL (12.0-18.0); LYMPHOCYTES # (AUTO) 0.7 K/uL (2.0-11.5); LYMPHOCYTES % (AUTO) 6.1 % (20.5-51.1); MEAN CORPUSCULAR HEMOGLOBIN 27 pg (27-31); MEAN CORPUSCULAR HGB CONC 33 g/dL (33-37); MEAN CORPUSCULAR VOLUME 82.1 fL (80-94); MONOCYTES # (AUTO) 0.1 K/uL (0.8-1.0); MONOCYTES % (AUTO) 0.9 % (1.7-9.3); NEUTROPHILS # (AUTO) 10.6 K/uL (1.8-7.7); NEUTROPHILS % (AUTO) 90.7 % (42.2-75.2); PLATELET COUNT (AUTO) 280 K/uL (140-450); RED BLOOD CELL COUNT(AUTO) 6.04 MIL/uL (4.20-6.10); WHITE BLOOD COUNT (AUTO) 11.7 K/uL (4.8-10.8)
--- NOTE | 2020-08-13 22:14 | NUR ---
RT IN NPROGRESS
[2020-08-13 22:18] LABS: ALBUMIN 4.2 g/dL (3.4-5.0); ANION GAP 15.7 (8-16); CARBON DIOXIDE 27.6 mmol/L (21-32); CREATININE 1.3 mg/dL (0.6-1.3); POTASSIUM 4.3 mmol/L (3.5-5.1); TOTAL BILIRUBIN 0.3 mg/dL (0.0-1.0)
--- NOTE | 2020-08-13 23:20 | NUR ---
PT TO BE ADMITTED REPORT CALLED TO LIN JENKINS
[2020-08-13] MEDS ORDERED: HYDROcodone/APAP 7.5/325 MG 1 TAB PO PRN (23:40)
[2020-08-13] MEDS ORDERED: ONDANSETRON 4 MG/2 ML VIAL IM/IVP PRN (23:40)
[2020-08-13] MEDS ORDERED: POTASSIUM CHLORIDE 10 MEQ TABER PO PRN (23:40)
[2020-08-13] MEDS ORDERED: ACETAMINOPHEN 325 MG TAB PO PRN (23:40)
[2020-08-13] MEDS ORDERED: DOCUSATE SODIUM 100 MG GELCAP PO PRN (23:40)
--- NOTE | 2020-08-13 23:40 | NUR ---
TRANSFERED [facility] VIA RNEY ATTCED TO MANAGER REVIEW. HAS CONTINUOUSLY BEEN SPEAKING ON THE PHONE. SPEAKS IN CLEAR SENTENCES, NO RESPIRATORY DISTRESS NOTED.
--- NOTE | 2020-08-13 23:50 | NUR ---
PT ARRIVED TO UNIT FROM ED VIA GURNEY. PT AAOX4, AMBULATORY, ABLE TO MAKE NEEDS KNOWN. PT INITIALLY ON ROOM AIR, SAT AT 91%. PT VERBALIZED DESIRE FOR O2. PT PLACED ON CANNULA 2LPM, O2 SAT 95%. PT NOT IN DISTRESS. ABDOMEN IS SOFT AND NON-TENDER. SKIN IS WARM, DRY, AND INTACT. PT WITH IV ACCESS ON LEFT HAND G22 PATENT AND INTACT, SALINE LOCKED. PT DENIES ANY PAIN OR DISCOMFORT AT THIS TIME. VS TAKEN, STABLE. MRSA SWAB COLLECTED. PT HOOKED TO TELE MONITOR. PT ORIENTED TO ROOM. POC DISCUSSED. PT KEPT COMFORTABLE. CALL LIGHT WITHIN REACH. WILL CONTINUE TO. MONITOR.
[2020-08-14] VITALS: BP 130/70
[2020-08-14 00:09] LABS: PHOSPHORUS 1.5 mg/dL (2.5-4.9)
[2020-08-14] MEDS: FAMOTIDINE 20 MG/2 ML VIAL IV SCH ×2 (00:26→23:10)
--- NOTE | 2020-08-14 02:30 | NUR ---
PT ASLEEP. O2 IN PLACE. NO S/SX OF DISTRESS NOTED. PT KEPT COMFORTABLE. CALL LIGHT WITHIN REACH. WILL CONTINUE TO MONITOR.
[2020-08-14 04:00] VITALS: BP 143/75
[2020-08-14] MEDS: methylPREDNISolone SS 40 MG/ML VIAL IVP SCH ×3 (04:16→20:10)
--- NOTE | 2020-08-14 04:18 | NUR ---
VS STABLE. PT NOT IN DISTRESS. O2 IN PLACE. SCHEDULED MEDS GIVEN. PT KEPT COMFORTABLE. NO REQUESTS MADE AT THIS TIME. CALL LIGHT WITHIN REACH. WILL CONTINUE TO MONITOR.
[2020-08-14] MEDS: ALBUTEROL 0.083% 2.5 MG/3 ML NEBU INH SCH ×6 (05:05→23:00)
[2020-08-14] MEDS: ALBUTEROL SULFATE/IPRATROPIU 3 ML SOL IH SCH ×3 (05:06→19:00)
[2020-08-14] MEDS: ALBUTEROL SULFATE/IPRATROPIU 3 ML SOL IH PRN ×2 (07:21→08:29)
--- NOTE | 2020-08-14 07:23 | NUR ---
ENDORSED TO DAY SHIFT NURSE FOR CONTINUITY OF CARE
--- NOTE | 2020-08-14 07:25 | NUR ---
RECEIVED REPORT FROM PUGGER HELPER NURSE FOR CONTINUITY OF CARE. PATIENT IN STABLE CONDITION.
[2020-08-14 07:47] LABS: BASOPHILS % (AUTO) 0.4 % (0.0-2.0); HEMATOCRIT 47.7 % (36-52); HEMOGLOBIN 15.8 g/dL (12.0-18.0); LYMPHOCYTES # (AUTO) 0.8 K/uL (2.0-11.5); LYMPHOCYTES % (AUTO) 10.6 % (20.5-51.1); MEAN CORPUSCULAR HEMOGLOBIN 28 pg (27-31); MEAN CORPUSCULAR HGB CONC 33 g/dL (33-37); MEAN CORPUSCULAR VOLUME 83.2 fL (80-94); MONOCYTES # (AUTO) 0.1 K/uL (0.8-1.0); NEUTROPHILS # (AUTO) 6.2 K/uL (1.8-7.7); PLATELET COUNT (AUTO) 273 K/uL (140-450); RED BLOOD CELL COUNT(AUTO) 5.73 MIL/uL (4.20-6.10); RED CELL DISTRIBUTION WIDTH 14.1 % (11.6-13.7); WHITE BLOOD COUNT (AUTO) 7.1 K/uL (4.8-10.8)
[2020-08-14 07:53] LABS: ANION GAP 15.3 (8-16); CARBON DIOXIDE 25.2 mmol/L (21-32); CREATININE 1.2 mg/dL (0.6-1.3); POTASSIUM 4.5 mmol/L (3.5-5.1)
[2020-08-14 08:00] VITALS: BP 148/82
--- NOTE | 2020-08-14 08:17 | NUR ---
PATIENT HAS BEEN SCREENED AND CATEGORIZED LOW NUTRITION RISK. PATIENT WILL BE SEEN WITHIN 7 DAYS OF ADMISSION. 08/20/[address]
[2020-08-14] MEDS: LORATADINE 10 MG TAB PO SCH (08:54)
--- NOTE | 2020-08-14 08:54 | NUR ---
SCHEDULED MEDICATIONS DUE GIVEN. WILL CONTINUE TO MONITOR.
--- NOTE | 2020-08-14 09:38 | NUR ---
SPOKE TO PHYSICIAN REGARDING DUONEB Q6 AND ALBUTEROL Q4 BREATHING TX ORDER. PHYSICIAN STATES TO ONLY ADMINISTER ALBUTEROL Q4 AND HE WILL DC DUONEB Q6 ORDER.
[2020-08-14 12:00] VITALS: BP 114/66
--- NOTE | 2020-08-14 13:00 | NUR ---
SCHEDULED MEDICATIONS DUE GIVEN. WILL CONTINUE TO MONITOR.
[2020-08-14 16:00] VITALS: BP 105/60
--- NOTE | 2020-08-14 16:00 | NUR ---
ASSISTED WOOD CARVER IN CLEANING AND REPOSITIONING PATIENT. WILL CONTINUE TO MONITOR.
--- NOTE | 2020-08-14 19:21 | NUR ---
GAVE REPORT TO IN SERVICE EDUCATOR NURSE FOR CONTINUITY OF CARE. PATIENT IN STABLE CONDITION.
--- NOTE | 2020-08-14 19:22 | NUR ---
RECEIVED REPORT FROM DAY SHIFT NURSE. PT AAOX4, AMBULATORY, ABLE TO MAKE NEEDS KNOWN. PT CURRENTLY ON O2 2LPM/NC, O2 SAT AT 96%. PT NOT IN DISTRESS. ABDOMEN IS SOFT AND NON-TENDER, ACTIVE BOWEL SOUNDS NOTED. SKIN IS WARM, DRY, AND INTACT. PT WITH IV ACCESS ON LEFT HAND G22 PATENT AND INTACT, SALINE LOCKED. PT DENIES ANY PAIN OR DISCOMFORT AT THIS TIME. NO REQUESTS MADE. POC DISCUSSED. PT KEPT COMFORTABLE. CALL LIGHT WITHIN REACH. WILL CONTINUE TO. MONITOR.
[2020-08-14 20:00] VITALS: BP 118/77
--- NOTE | 2020-08-14 20:10 | NUR ---
VS STABLE. SCHEDULED MEDS GIVEN ORDERED. O2 IN PLACE. O2 SAT 95%. PT NOT IN DISTRESS. DENIES ANY PAIN OR DISCOMFORT. NO REQUESTS MADE. CALL LIGHT WITHIN REACH. WILL CONTINUE TO MONITOR.
--- NOTE | 2020-08-14 22:17 | NUR ---
ROUNDS MADE. PT IN BED WATCHING TV. O2 IN PLACE, HOB ELEVATED. PT NOT IN DISTRESS. DENIES ANY PAIN OR DISCOMFORT AT THIS TIME. NO REQUESTS MADE. CALL LIGHT WITHIN REACH. WILL CONTINUE TO MONITOR.
--- NOTE | 2020-08-14 23:10 | NUR ---
VS STABLE. PT COMPLAINING OF BLOATEDNESS AND ABDOMINAL DISCOMFORT. SCHEDULED FAMOTIDINE GIVEN ORDERED. PT KEPT COMFORTABLE. CALL LIGHT WITHIN REACH. WILL CONTINUE TO MONITOR.
[2020-08-15] VITALS: BP 126/66
--- NOTE | 2020-08-15 02:37 | NUR ---
PT ASLEEP. VISIBLE CHEST RISE AND FALL NOTED. O2 IN PLACE. NO S/SX OF DISTRESS NOTED. CALL LIGHT WITHIN REACH. WILL CONTINUE TO MONITOR.
[2020-08-15] MEDS: ALBUTEROL 0.083% 2.5 MG/3 ML NEBU INH SCH ×6 (03:00→23:49)
--- NOTE | 2020-08-15 03:18 | NUR ---
PATIENT IS ASLEEP, PT REQUESTED EARLIER THAT NOT TO WAKE HIM UP FOR BREATHING TX. PT APPEARS COMFORTABLE, NO SOB NOTED AT THIS TIME.
[2020-08-15 04:00] VITALS: BP 134/65
--- NOTE | 2020-08-15 04:02 | NUR ---
VS STABLE. PT IN BED RESTING. O2 IN PLACE. DENIES ANY /SOB. NO REQUESTS MADE AT THIS TIME. PT KEPT COMFORTABLE. CALL LIGHT WITHIN REACH. WILL CONTINUE TO MONITOR.
[2020-08-15] MEDS: methylPREDNISolone SS 40 MG/ML VIAL IVP SCH ×3 (04:31→21:04)
--- NOTE | 2020-08-15 07:21 | NUR ---
CHECKED ON PATIENT. PATIENT IS STABLE. NO DISTRESS NOTED. WILL CONTINUE TO MONITOR.
--- NOTE | 2020-08-15 07:25 | NUR ---
RECEIVED PATIENT REPORT FROM NIGHT NURSE, PT IS STABLE. CALL LIGHT IS WITHIN REACH. SAFETY MEASURES IN PLACE. WILL CONTINUE TO MONITOR
[2020-08-15 07:43] LABS: ANION GAP 12.4 (8-16); CARBON DIOXIDE 28.2 mmol/L (21-32); CREATININE 1.1 mg/dL (0.6-1.3); POTASSIUM 4.6 mmol/L (3.5-5.1)
[2020-08-15 07:44] LABS: BASOPHILS % (AUTO) 0.3 % (0.0-2.0); EOSINOPHILS % (AUTO) 0.1 % (0.0-4.0); HEMATOCRIT 47.5 % (36-52); HEMOGLOBIN 15.6 g/dL (12.0-18.0); LYMPHOCYTES % (AUTO) 6.5 % (20.5-51.1); MEAN CORPUSCULAR HEMOGLOBIN 27 pg (27-31); MEAN CORPUSCULAR HGB CONC 33 g/dL (33-37); MEAN CORPUSCULAR VOLUME 83.2 fL (80-94); MONOCYTES # (AUTO) 0.7 K/uL (0.8-1.0); MONOCYTES % (AUTO) 4.4 % (1.7-9.3); NEUTROPHILS # (AUTO) 13.3 K/uL (1.8-7.7); NEUTROPHILS % (AUTO) 88.7 % (42.2-75.2); PLATELET COUNT (AUTO) 298 K/uL (140-450); RED BLOOD CELL COUNT(AUTO) 5.71 MIL/uL (4.20-6.10); RED CELL DISTRIBUTION WIDTH 14.5 % (11.6-13.7); WHITE BLOOD COUNT (AUTO) 15.1 K/uL (4.8-10.8)
[2020-08-15] MEDS: ALBUTEROL SULFATE/IPRATROPIU 3 ML SOL IH SCH ×3 (07:49→19:00)
[2020-08-15 08:00] VITALS: BP 114/75
[2020-08-15] MEDS: LORATADINE 10 MG TAB PO SCH (08:22)
[2020-08-15] MEDS: ENOXAPARIN 40 MG/0.4 ML SYR SUBQ SCH (08:22)
--- NOTE | 2020-08-15 08:29 | NUR ---
SCHEDULED MEDS GIVEN. PATIENT TOLERATED WELL.
--- NOTE | 2020-08-15 10:58 | NUR ---
FNS REFERRAL RECEIVED 08/15/20. REFERRAL TRIGGER N/A DOES NOT MEET CRITERIA PER HOSPITAL POLICY. PT WILL BE SEEN AND ASSESSED ACCORDING TO NUTRITION CARE POLICY. PATIENT HAS BEEN RE-SCREENED AND CATEGORIZED MODERATE NUTRITION RISK. PATIENT WILL BE SEEN WITHIN 3-5 DAYS OF ADMISSION. 08/16/20 - 08/18/20 K[address] MBA, RD
--- NOTE | 2020-08-15 11:00 | NUR ---
PT IS TALKING ON THE PHONE. Y NO S/S OF DISTRESS. CALL LIGHT IS WITHIN REACH, SAFETY MEASURES IN PLACE. WILL CONTINUE TO MONITOR.
[2020-08-15 12:00] VITALS: BP 102/69
--- NOTE | 2020-08-15 12:11 | NUR ---
PT SITTING IN BED COMFORTABLY NO S/S OF DISTRESS WILL CONTINUE TO MONITOR. CALL LIGHT IS WITHIN REACH, SAFETY MEASURES IN PLACE.
--- NOTE | 2020-08-15 12:16 | NUR ---
SOCIAL WORK NOTE: Patient's Orientation Person Situation Place Time Information Provided By PATIENT Comments SW WAS UNABLE TO MEET PATIENT AT BEDSIDE. SW COMPLETED ASSESSMENT WITH PATIENT TELEPHONICALLY. Community Outreach Manager, Realtionship and Phone Number AURELIA MYLES [phone] Healthcare Power of Top Dyeing Machine Loader No Does Patient Have a POLST No Identifying Problems No Social Work Triggers Is A Social Work Consult Needed No Mandate Report Filed No Explanation Of Identifying Problems PATIENT IS A 34-YEAR-OLD MALE ADMITTED FOR COPD EXACERBATION. PATIENT HAS PMHX OF PREMATURITY AND RIGHT EYE BLINDNESS. RAYMON REPORTED NO HX OF MENTAL HEALTH OR SUBSTANCE ABUSE. Admitted From Home Pre-Admission Level Of Functioning Status Independent/Ambulatory Prior Resources/Services Used In Last 12 Months No Prior Resources Used Prior DME No Prior DME Used Dialysis Comments N/A Living Situation Lives With Family House Patient Had Caregiver No Home Support No Caregiver Issues Financial Issues No Known Financial Issue Referral To The Financial Counselor Needed No Factors/Needs No D/C Needs Identified Pt/Rep Participated In Discharge Plan Yes Patient/Family Agress With Discharge Plan Yes Discharge Plan Comments TENTATIVE DISCHARGE PLAN IS FOR PATIENT TO RETURN HOME. DC Plan Status Initiated
[2020-08-15 17:47] VITALS: BP 107/72
--- NOTE | 2020-08-15 19:25 | NUR ---
PT ENDORSED TO NIGHT RN FOR CONTINUITY OF CARE. PT IS STABLE.
--- NOTE | 2020-08-15 19:30 | NUR ---
RECEIVED BEDSIDE REPORT FROM DAY SHIFT NURSE. PATIENT IS AWAKE, ALERT, AND COOPERATIVE. RESPIRATION EVEN UNLABORED ON 2L NC O2. NO DISTRESS NOTED. SKIN IS WARM AND DRY. IV PATENT AND INTACT. SALINE LOCKED. PLAN OF CARE WAS DISCUSSED. ALL SAFETY MEASURES IN PLACE. BED IS AT LOW POSITION. CALL LIGHT WITHIN REACH. WILL CONTINUE TO MONITOR.
[2020-08-15 20:00] VITALS: BP 129/69
--- NOTE | 2020-08-15 20:45 | NUR ---
PATIENT ASK FOR SNACK. SNACK PROVIDED
--- NOTE | 2020-08-15 21:40 | NUR ---
ALL SCHEDULED MEDS WERE GIVEN PER ORDER. WILL CONTINUE TO MONITOR.
--- NOTE | 2020-08-15 22:24 | NUR ---
MADE ROUNDS. PATIENT EATING. WILL CONTINUE TO MONITOR
[2020-08-15] MEDS: FAMOTIDINE 20 MG/2 ML VIAL IV SCH (23:23)
--- NOTE | 2020-08-15 23:30 | NUR ---
SCHEDULED PEPCID GIVEN PER ORDER. WILL CONTINUE TO MONITOR
[2020-08-16] VITALS: BP 134/73
--- NOTE | 2020-08-16 01:00 | NUR ---
MADE ROUNDS. PATIENT SLEEPING RESPIRATION EVEN UNLABORED ON 2L NC O2. NO DISTRESS NOTED. WILL CONTINUE TO MONITOR.
--- NOTE | 2020-08-16 02:44 | NUR ---
MADE ROUNDS. PATIENT SLEEPING RESPIRATION EVEN UNLABORED ON 2L NC O2. NO DISTRESS NOTED. WILL CONTINUE TO MONITOR.
[2020-08-16 04:00] VITALS: BP 145/71
--- NOTE | 2020-08-16 04:10 | NUR ---
VITALS WERE TAKEN. RT AT BEDSIDE TITRATE PATIENT O2 TO 3LPM/NC. WILL CONTINUE TO MONITOR
[2020-08-16] MEDS: ALBUTEROL 0.083% 2.5 MG/3 ML NEBU INH SCH ×3 (04:43→11:06)
[2020-08-16] MEDS: methylPREDNISolone SS 40 MG/ML VIAL IVP SCH (04:47)
[2020-08-16 06:21] LABS: BASOPHILS % (AUTO) 0.1 % (0.0-2.0); HEMATOCRIT 46.4 % (36-52); HEMOGLOBIN 15.1 g/dL (12.0-18.0); LYMPHOCYTES # (AUTO) 0.8 K/uL (2.0-11.5); LYMPHOCYTES % (AUTO) 5.5 % (20.5-51.1); MEAN CORPUSCULAR HEMOGLOBIN 27 pg (27-31); MEAN CORPUSCULAR HGB CONC 33 g/dL (33-37); MEAN CORPUSCULAR VOLUME 84.3 fL (80-94); MONOCYTES # (AUTO) 0.7 K/uL (0.8-1.0); MONOCYTES % (AUTO) 4.7 % (1.7-9.3); NEUTROPHILS # (AUTO) 12.8 K/uL (1.8-7.7); NEUTROPHILS % (AUTO) 89.7 % (42.2-75.2); PLATELET COUNT (AUTO) 301 K/uL (140-450); RED CELL DISTRIBUTION WIDTH 14.7 % (11.6-13.7); WHITE BLOOD COUNT (AUTO) 14.3 K/uL (4.8-10.8)
[2020-08-16 06:22] LABS: ANION GAP 10.6 (8-16); CARBON DIOXIDE 29.3 mmol/L (21-32); CREATININE 1.1 mg/dL (0.6-1.3); POTASSIUM 4.9 mmol/L (3.5-5.1)
[2020-08-16] MEDS: ALBUTEROL SULFATE/IPRATROPIU 3 ML SOL IH SCH ×2 (07:00→13:00)
--- NOTE | 2020-08-16 07:00 | NUR ---
RECEIVED ENDORSEMENT FROM FLIGHT TEST SHOP MECHANIC NURSE FOR CONTINUATION OF CARE. PATIENT IN BED ASLEEP. AOX4. PATIENT IS ON REGULAR DIET. ON 3LNC SATURATION 96%. PATIENTS IV IS IN PLACE AND INTACT. SAFETY MEASURES ARE IN PLACE. CALL LIGHT WITHIN REACH. WILL CONTINUE TO MONITOR NEEDED.
--- NOTE | 2020-08-16 07:11 | NUR ---
ENDORSED PATIENT TO DAY SHIFT NURSE FOR CONTINUITY OF CARE.
[2020-08-16 08:00] VITALS: BP 121/88
[2020-08-16] MEDS: LORATADINE 10 MG TAB PO SCH (08:35)
[2020-08-16] MEDS: ENOXAPARIN 40 MG/0.4 ML SYR SUBQ SCH (08:42)
--- NOTE | 2020-08-16 08:42 | NUR ---
SCHEDULED MEDICATIONS GIVEN. NO DISTRESS NOTED. WILL CONTINUE TO MONITOR NEEDED.
[2020-08-16] MEDS ORDERED: MONT10TA35 PO (11:26)
[2020-08-16] MEDS ORDERED: PRED20TA5 PO (11:26)
[2020-08-16] MEDS ORDERED: FLUT1DSK2 IH (11:26)
[2020-08-16] MEDS ORDERED: LORA10TA19 PO (11:26)
[2020-08-16] MEDS ORDERED: ALBU0.0912 IH (11:26)
[2020-08-16] MEDS ORDERED: AZIT250T3 PO (11:26)
[2020-08-16] MEDS ORDERED: TIOT18CA2 PO (11:26)
[2020-08-16 12:10] VITALS: BP 121/88
--- NOTE | 2020-08-16 13:11 | NUR ---
ORDERED FOR PATIENT TO BE DISCHARGED TO HOME. DEBORAH PAPER WORKS PREPARED. PATIENT TAUGHT THE TEACHING PLAN. MEDICATIONS RENEWED. IV LEFT HAND REMOVED. NO REDNESS OR PAIN NOTED. PATIENT IN STABLE CONDITION. VITAL SIGNS WERE ALL NORMAL.
--- NOTE | 2020-08-16 15:07 | NUR ---
DC PLANNIN YRS OLD MALE PATIENT WAS ADMITTED FROM HOME WITH A DX OF COPD EXACERBATION. PT HAS A HX OF ASTHMA. CXR SHOWED NO ACUTE CARDIOPULMONARY DISEASE. RAPID COVID TEST NEGATIVE. STARTED ON SOLU-MEDROL IVP,RT PROTOCOL O2 SUPPORT 4L/NC SATING 96%. CONSULTED WITH [facility]. DC PLAN TO GO HOME WHEN STABLE. CM TO FOLLOW.
== END 2020-08-16 13:00 | disposition home or self-care (01) | DRG 140 ==
LOC: MED 18:50 → MTU 23:13
PROVIDERS: ADMIT Emergency Medicine; ATTEND Emergency Medicine
DX: J44.1 Chronic obstructive pulmonary disease with (acute) exacerbation (principal); J96.20 Acute and chronic respiratory failure, unspecified whether with hypoxia or hypercapnia; J45.901 Unspecified asthma with (acute) exacerbation; Z20.822 Contact with and (suspected) exposure to COVID-19; E66.2 Morbid (severe) obesity with alveolar hypoventilation; H54.61 Unqualified visual loss, right eye, normal vision left eye; F81.9 Developmental disorder of scholastic skills, unspecified; Z91.018 Allergy to other foods; D72.819 Decreased white blood cell count, unspecified; E83.39 Other disorders of phosphorus metabolism; R73.03 Prediabetes; Z68.30 Body mass index [BMI] 30.0-30.9, adult
CPT/HCPCS: 36415; 36600; 71045; 80048; 80053; 82803; 83036; 83735; 84100; 85025; 87081; 94640; 96365; 99285; J1650; J2920; J2930; J3475; J3490; J7613

== ENCOUNTER 2023-09-07 05:55 | Emergency (ER) | payer MEDICAID ==
[~2023-09-07] VITALS: Ht 167.6 cm; Wt 86.2 kg
[~2023-09-07 05:55] MED LIST changes: -AZIT250T3 PO; +DORZ10DR15 OP; -DORZ10SO3 OP; +LEVO750T75 PO; +MONT-72 PO; -MONT10TA35 PO; -TIOT18CA2 PO
[2023-09-07 06:02] VITALS: BP 169/107; RESP 28; TEMP 98.1; O2SAT 76
[2023-09-07] MEDS ORDERED: ALBUTEROL SULFATE/IPRATROPIU 3 ML SOL IH ONE (06:14)
[2023-09-07] MEDS: ALBUTEROL SULFATE/IPRATROPIU 3 ML SOL IH ONE ×2 (06:17→07:25)
[2023-09-07] MEDS: ALBUTEROL 0.083% 2.5 MG/3 ML NEBU INH ONE ×2 (06:18→07:25)
[2023-09-07] MEDS: predniSONE 20 MG TAB PO ONE (06:25)
[2023-09-07 06:26] VITALS: TEMP 98.1
[2023-09-07] MEDS ORDERED: ALBU0.0912 INH (06:45)
[2023-09-07] MEDS ORDERED: PRED20TA5 PO (06:45)
[2023-09-07] MEDS ORDERED: TIOT18CA2 IH (07:02)
[2023-09-07] MEDS ORDERED: PRON INH (07:02)
[2023-09-07] MEDS ORDERED: FLUT1DSK2 IH (07:02)
[2023-09-07 07:27] VITALS: PULSE 97; RESP 16; O2SAT 92; O2SAT 93
[2023-09-07 07:55] VITALS: BP 133/82; PULSE 100; RESP 18; O2SAT 94
== END 2023-09-07 07:55 | disposition home or self-care (01) ==
LOC: MED 05:55
DX: J45.909 Unspecified asthma, uncomplicated (principal); K21.9 Gastro-esophageal reflux disease without esophagitis; Z79.899 Other long term (current) drug therapy
CPT/HCPCS: 94640; 99284; J7512; J7613

== ENCOUNTER 2023-09-08 17:08 | Inpatient (IN) | payer MEDICAID ==
[~2023-09-08] VITALS: Ht 167.6 cm; Wt 85.4 kg
[2023-09-08] VITALS (7 sets, daily range): BP systolic 127; BP diastolic 91; PULSE 81–117; RESP 14–22; TEMP 98.7; O2SAT 88–99
[~2023-09-08 17:08] MED LIST changes: +ALBU0.0912 INH; +PRON INH; +TIOT18CA2 IH
[2023-09-08] MEDS: ALBUTEROL 0.083% 2.5 MG/3 ML NEBU INH ONE ×2 (17:31→18:39)
[2023-09-08] MEDS: IPRATROPIUM 0.02% 0.5 MG/2.5 ML NEBU INH ONE ×2 (17:31→18:39)
[2023-09-08] MEDS: NACL 0.9% 1,000 ML IV ONE (19:00)
[2023-09-08] MEDS: MAG SULF 2000 MG/WATER PREMIX 50 ML IV ONE (19:08)
[2023-09-08 19:48] LABS: BASOPHILS % (AUTO) 0.1 % (0.0-2.0); EOSINOPHILS % (AUTO) 0.1 % (0.0-4.0); HEMATOCRIT 48.4 % (36-52); HEMOGLOBIN 16.3 g/dL (12.0-18.0); LYMPHOCYTES # (AUTO) 0.8 K/uL (2.0-11.5); LYMPHOCYTES % (AUTO) 8.8 % (20.5-51.1); MEAN CORPUSCULAR HEMOGLOBIN 28 pg (27-31); MEAN CORPUSCULAR HGB CONC 34 g/dL (33-37); MEAN CORPUSCULAR VOLUME 84.4 fL (80-94); MONOCYTES # (AUTO) 0.1 K/uL (0.8-1.0); MONOCYTES % (AUTO) 1.5 % (1.7-9.3); NEUTROPHILS # (AUTO) 8.3 K/uL (1.8-7.7); NEUTROPHILS % (AUTO) 89.5 % (42.2-75.2); PLATELET COUNT (AUTO) 235 K/uL (140-450); RED BLOOD CELL COUNT(AUTO) 5.73 MIL/uL (4.20-6.10); RED CELL DISTRIBUTION WIDTH 13.7 % (11.6-13.7); WHITE BLOOD COUNT (AUTO) 9.2 K/uL (4.8-10.8)
[2023-09-08 19:55] LABS: ANION GAP 13.2 (8-16); CALCIUM 8.6 mg/dL (8.5-10.1); CARBON DIOXIDE 27.7 mmol/L (21-32); CREATININE 1.3 mg/dL (0.6-1.3); POTASSIUM 3.9 mmol/L (3.5-5.1)
[2023-09-08] MEDS ORDERED: methylPREDNISolone SS 125 MG/2 ML VIAL ONE (19:55)
[2023-09-08] MEDS: methylPREDNISolone SS 125 MG/2 ML VIAL IVP ONE (19:59)
[2023-09-08] MEDS ORDERED: VANCOMYCIN PER PHARMACY MC PRN (20:15)
[2023-09-08 20:27] LABS: BILIRUBIN,DIRECT 0.1 mg/dL (0.0-0.3); TOTAL BILIRUBIN 0.4 mg/dL (0.0-1.0); TOTAL PROTEIN, SERUM 8.3 g/dL (6.4-8.2)
[2023-09-08] MEDS ORDERED: VANCOMYCIN 1,000 MG VIAL ONE (21:49)
[2023-09-08] MEDS ORDERED: PIPERACILLIN/TAZOBACTAM 3.375 GM VIAL IV ONE (21:49)
[2023-09-08] MEDS: VANCOMYCIN 1GM/DEXT 5% PREMIX 200 ML IV ONE (22:00)
[2023-09-08] MEDS: PIPERACILLIN/TAZOBACTAM 3.375 GM in DEXTROSE 5% 50 ML IV SCH (22:22)
[2023-09-08] MEDS: ALBUTEROL SULFATE/IPRATROPIU 3 ML SOL IH SCH (22:40)
[2023-09-09] VITALS (12 sets, daily range): BP systolic 106–113; BP diastolic 54–67; PULSE 69–109; RESP 18–26; TEMP 98–98.2; O2SAT 95–100
[2023-09-09 01:21] LABS: FLU A ANTIGEN negative (NEGATIVE); FLU B ANTIGEN NEGATIVE (NEGATIVE)
[2023-09-09] MEDS ORDERED: PIPERACILLIN/TAZOBACTAM 3.375 GM VIAL IV ONE (05:21)
[2023-09-09 07:19] LABS: BASOPHILS % (AUTO) 0.1 % (0.0-2.0); HEMATOCRIT 44.3 % (36-52); LYMPHOCYTES # (AUTO) 0.7 K/uL (2.0-11.5); LYMPHOCYTES % (AUTO) 7.8 % (20.5-51.1); MEAN CORPUSCULAR HEMOGLOBIN 29 pg (27-31); MEAN CORPUSCULAR HGB CONC 34 g/dL (33-37); MEAN CORPUSCULAR VOLUME 84.2 fL (80-94); MONOCYTES # (AUTO) 0.2 K/uL (0.8-1.0); MONOCYTES % (AUTO) 2.3 % (1.7-9.3); NEUTROPHILS # (AUTO) 7.9 K/uL (1.8-7.7); NEUTROPHILS % (AUTO) 89.8 % (42.2-75.2); PLATELET COUNT (AUTO) 242 K/uL (140-450); RED BLOOD CELL COUNT(AUTO) 5.25 MIL/uL (4.20-6.10); RED CELL DISTRIBUTION WIDTH 13.3 % (11.6-13.7); WHITE BLOOD COUNT (AUTO) 8.8 K/uL (4.8-10.8)
[2023-09-09 07:38] LABS: ANION GAP 13.4 (8-16); CALCIUM 8.6 mg/dL (8.5-10.1); CARBON DIOXIDE 27.7 mmol/L (21-32); CREATININE 1.5 mg/dL (0.6-1.3); POTASSIUM 4.1 mmol/L (3.5-5.1)
[2023-09-09] MEDS: methylPREDNISolone SS 40 MG in WATER STERILE 1 ML IV SCH (09:00)
[2023-09-09] MEDS: WATER STERILE 10 ML MC ONE ×2 (09:21→13:35)
[2023-09-09] MEDS: methylPREDNISolone SS 40 MG/ML VIAL ONE ×2 (09:23→13:35)
[2023-09-09] MEDS: VANCOMYCIN 750 MG in DEXTROSE 5% 250 ML IV SCH (09:27)
[2023-09-09] MEDS ORDERED: MAG SULF 2000 MG/WATER PREMIX 50 ML IV PRN (10:55)
[2023-09-09] MEDS ORDERED: HYDROcodone/APAP 5/325 MG 1 TAB TAB PO PRN (10:55)
[2023-09-09] MEDS ORDERED: ONDANSETRON 4 MG/2 ML VIAL IVP PRN (10:55)
[2023-09-09] MEDS ORDERED: POTASSIUM CHLORIDE 10 MEQ TABER PO PRN (10:55)
[2023-09-09] MEDS ORDERED: ACETAMINOPHEN 325 MG TAB PO PRN (10:55)
[2023-09-09] MEDS ORDERED: MELATONIN 3 MG TAB PO PRN (10:55)
[2023-09-09] MEDS: methylPREDNISolone SS 40 MG/ML VIAL IVP SCH (17:18)
[2023-09-09] MEDS: SIMETHICONE 80 MG TAB.CHEW PO ONE (20:18)
[2023-09-09] MEDS: PANTOPRAZOLE 40 MG TABEC PO ONE (20:19)
[2023-09-09] MEDS: POLYETHYLENE GLYCOL 17 GM/PKT PO PRN (22:17)
[2023-09-10] VITALS (14 sets, daily range): BP systolic 100–130; BP diastolic 72–80; PULSE 64–116; RESP 12–22; TEMP 97.2–98.4; O2SAT 94–99
[2023-09-10] MEDS: MORPHINE SULFATE 2 MG/ML SYR IVP PRN (01:51)
[2023-09-10 06:55] LABS: BASOPHILS % (AUTO) 0.2 % (0.0-2.0); HEMATOCRIT 46.5 % (36-52); HEMOGLOBIN 15.5 g/dL (12.0-18.0); LYMPHOCYTES # (AUTO) 0.6 K/uL (2.0-11.5); LYMPHOCYTES % (AUTO) 4.3 % (20.5-51.1); MEAN CORPUSCULAR HEMOGLOBIN 28 pg (27-31); MEAN CORPUSCULAR HGB CONC 33 g/dL (33-37); MEAN CORPUSCULAR VOLUME 84.4 fL (80-94); MONOCYTES # (AUTO) 1.4 K/uL (0.8-1.0); MONOCYTES % (AUTO) 9.2 % (1.7-9.3); NEUTROPHILS # (AUTO) 12.8 K/uL (1.8-7.7); NEUTROPHILS % (AUTO) 86.3 % (42.2-75.2); PLATELET COUNT (AUTO) 262 K/uL (140-450); RED BLOOD CELL COUNT(AUTO) 5.51 MIL/uL (4.20-6.10); RED CELL DISTRIBUTION WIDTH 13.7 % (11.6-13.7); WHITE BLOOD COUNT (AUTO) 14.8 K/uL (4.8-10.8)
[2023-09-10 07:37] LABS: ANION GAP 13.1 (8-16); CALCIUM 9.7 mg/dL (8.5-10.1); CARBON DIOXIDE 28.8 mmol/L (21-32); CREATININE 1.2 mg/dL (0.6-1.3); MAGNESIUM 2.2 mg/dL (1.8-2.4); PHOSPHORUS 4.5 mg/dL (2.5-4.9); POTASSIUM 3.9 mmol/L (3.5-5.1); TOTAL BILIRUBIN 0.3 mg/dL (0.0-1.0); TOTAL PROTEIN, SERUM 8.3 g/dL (6.4-8.2)
[2023-09-10] MEDS: AZITHROMYCIN 250 MG TAB PO SCH (10:46)
[2023-09-10] MEDS: VANCOMYCIN 1,000 MG in DEXTROSE 5% 250 ML IV SCH (10:47)
[2023-09-10] MEDS: PANTOPRAZOLE 40 MG TABEC PO SCH (12:36)
[2023-09-11] VITALS (11 sets, daily range): BP systolic 120–135; BP diastolic 56–76; PULSE 83–109; RESP 16–20; TEMP 97.2–99.1; O2SAT 94–99
[2023-09-11 06:58] LABS: BASOPHILS % (AUTO) 0.2 % (0.0-2.0); EOSINOPHILS % (AUTO) 0.2 % (0.0-4.0); HEMATOCRIT 43.7 % (36-52); HEMOGLOBIN 14.6 g/dL (12.0-18.0); LYMPHOCYTES # (AUTO) 0.8 K/uL (2.0-11.5); LYMPHOCYTES % (AUTO) 6.2 % (20.5-51.1); MEAN CORPUSCULAR HEMOGLOBIN 28 pg (27-31); MEAN CORPUSCULAR HGB CONC 33 g/dL (33-37); MEAN CORPUSCULAR VOLUME 84.5 fL (80-94); MONOCYTES # (AUTO) 1.1 K/uL (0.8-1.0); MONOCYTES % (AUTO) 8.1 % (1.7-9.3); NEUTROPHILS # (AUTO) 11.3 K/uL (1.8-7.7); NEUTROPHILS % (AUTO) 85.3 % (42.2-75.2); PLATELET COUNT (AUTO) 255 K/uL (140-450); RED BLOOD CELL COUNT(AUTO) 5.17 MIL/uL (4.20-6.10); RED CELL DISTRIBUTION WIDTH 13.6 % (11.6-13.7); WHITE BLOOD COUNT (AUTO) 13.2 K/uL (4.8-10.8)
[2023-09-11 07:29] LABS: ALBUMIN 3.5 g/dL (3.4-5.0); ANION GAP 10.7 (8-16); CALCIUM 9.1 mg/dL (8.5-10.1); CARBON DIOXIDE 31.4 mmol/L (21-32); CREATININE 1.1 mg/dL (0.6-1.3); MAGNESIUM 2.2 mg/dL (1.8-2.4); PHOSPHORUS 4.9 mg/dL (2.5-4.9); POTASSIUM 4.1 mmol/L (3.5-5.1); TOTAL BILIRUBIN 0.3 mg/dL (0.0-1.0); TOTAL PROTEIN, SERUM 6.5 g/dL (6.4-8.2)
[2023-09-11] MEDS: predniSONE 20 MG TAB PO SCH (10:24)
[2023-09-11] MEDS ORDERED: FLUT1DSK2 IH (10:37)
[2023-09-11] MEDS ORDERED: PRED20TA5 PO (10:37)
[2023-09-11] MEDS ORDERED: AZIT250T11 PO (10:37)
[2023-09-11] MEDS ORDERED: TIOT18CA2 IH (10:37)
== END 2023-09-11 15:20 | disposition home or self-care (01) | DRG 141 ==
LOC: MED 17:08 → MTU 20:22
PROVIDERS: ADMIT Student in an Organized Health Care Education/Training Program; ATTEND Student in an Organized Health Care Education/Training Program
DX: J45.901 Unspecified asthma with (acute) exacerbation (principal); J96.21 Acute and chronic respiratory failure with hypoxia; N17.0 Acute kidney failure with tubular necrosis; J44.1 Chronic obstructive pulmonary disease with (acute) exacerbation; R65.10 Systemic inflammatory response syndrome (SIRS) of non-infectious origin without acute organ dysfunction; Z20.822 Contact with and (suspected) exposure to COVID-19; E88.01 Alpha-1-antitrypsin deficiency; D72.829 Elevated white blood cell count, unspecified; Z79.899 Other long term (current) drug therapy
CPT/HCPCS: 36415; 71045; 76770; 80048; 80053; 80076; 80202; 83735; 84100; 85025; 87040; 87081; 94640; 96365; 96366; 96375; 99285; J1644; J2270; J2543; J2920; J2930; J3370; J3475; J7060; J7512; J7613; J7644; Q0092